=== PATIENT | male | born 1930 | race Caucasian/White ===

== ENCOUNTER 2017-08-22 14:22 | Inpatient (IN) | payer MEDICARE ==
--- NOTE | 2017-08-22 14:56 | CT ---
CT BRAIN WITHOUT CONTRAST: Date: 08/22/17 HISTORY: Fall. Bleeding. COMPARISON: CT brain from 09/20/14. FINDINGS: New from the comparison examination is high density material along the anterior left falx extending n ear to the vertex. This reaches up to 5.0 mm in transverse dimension and extends along the falx for a n AP length of approximately 3.5 cm. There is no midline shift or mass effect. This does not appear t o be hyperacute and may be subacute. Moderate microvascular ischemic changes right benitez radiata. There is also old lacunar infarct left external capsule. The basilar cisterns are patent. There is a similar lytic focus to the left occipit al calvarium with a sharp peripherally sclerotic margin that is likely chronic in nature. Old right-s ided nasal bone fractures. Mild mucosal sinus thickening of the ethmoids. There is some mild scalp swelling over the occiput. The retroorbital fat is without hemorrhage. Globe s are intact. IMPRESSION: Small subdural hematoma along the anterior left falx measuring 5.0 mm transverse and 3.5 cm AP dimens ion. Although the patient has had recent trauma, this may be subacute in nature. The calvarium is int act. No intraparenchymal hemorrhage or subarachnoid hemorrhage. CODE: ROSITA Gonzalez POS: [facility]
--- NOTE | 2017-08-22 14:57 | CT ---
CERVICAL SPINE CT SCAN WITHOUT IV CONTRAST: HISTORY: An 87-year-old male with a history of fall and head laceration, fell and hit head. FINDINGS: No evidence for acute fracture or facet dislocation. There are some generalized bilateral carotid ar miki vascular calcifications worse on the left side. There are some multilevel variable severity can al, lateral recess, and foraminal stenosis. The stenotic changes include a focal central protrusion at C5-C6 with some mild central cord indention. There is also a right paracentral disk protrusion at C6-C7. IMPRESSION: No evidence for acute fracture or facet dislocation. Multilevel variable severity canal, lateral rec ess, and foraminal stenosis including C3-C4 through C6-C7 levels. POS: [facility]
--- NOTE | 2017-08-22 15:14 | RAD ---
PORTABLE SUPINE CHEST 1 VIEW: HISTORY: An 87-year-old male with a history of fall and head injury from trauma. FINDINGS: Right ICD. Postop midline sternotomy. Borderline-sized heart. Right hemidiaphragm elevation. No c onfluent pneumonia, overt edema, or pleural effusion. No pneumothorax. IMPRESSION: No significant acute process in the chest. Stable right hemidiaphragm elevation. Atherosclerosis of the aorta with ectasia. POS: [facility]
[2017-08-22 15:27] LABS: #Eosinphils 0.2 thou/uL (0.0-0.7); #Lymphocytes 1.3 thou/uL (1.20-3.40); #Monocytes 0.6 thou/uL (0.11-0.59); #Neutrophils 3.5 thou/uL (1.40-6.50); %Basophils 0.2 % (0.0-1.0); %Eosinophils 3.6 % (0.0-10.0); %Lymphocytes 23.6 % (21.0-51.0); %Monocytes 11.3 % (0.0-10.0); %Neutrophils 61.4 % (42.0-75.0); Hemoglobin 13.1 g/dL (14.0-18.0); Mean Corpuscular HGB CONC 34.1 g/dL (32.0-36.0); Mean Corpuscular Hemoglobin 33.6 pg (27.0-31.0); Mean Corpuscular Volume 98.8 fl (80.0-94.0); Mean Platelet Volume 9.3 fL (7.4-10.4); Platelet Count 136 thou/uL (130-400); RBC Distribution Width 12.9 % (11.5-14.5); Red Blood Cell (RBC) Count 3.88 mill/uL (4.70-6.10); White Blood Cell (WBC) Count 5.7 thou/uL (4.8-10.8)
[2017-08-22 15:55] LABS: ALT (SGPT) 10 U/L (8-55); AST (SGOT) 15 U/L (5-34); Albumin 3.9 g/dL (3.4-4.8); Alkaline Phosphatase 38 U/L (40-150); Anion Gap 14 mmol/L (10-20); BUN (Urea Nitrogen) 29 mg/dL (8.4-25.7); Bilirubin, Total 1.2 mg/dL (0.2-1.2); CK (CPK) 126 U/L (30-200); Calc. Creatinine Clearance 0 mL/min (70-130); Calcium 9.1 mg/dL (7.8-10.44); Carbon Dioxide 25 mmol/L (23-31); Chloride 101 mmol/L (98-107); Estimated GFR-MDRD 29; Globulin 2.4 g/dL (2.4-3.5); Glucose 105 mg/dL (83-110); Potassium 3.8 mmol/L (3.5-5.1); Protein, Total 6.3 g/dL (5.8-8.1); Sodium 136 mmol/L (136-145)
[2017-08-22 16:00] LABS: CKMB 2.2 ng/mL (0-6.6); Troponin I 0.039 ng/mL (< 0.028)
[2017-08-22 16:07] LABS: INR-International Normal Ratio 1.2; PTT 29.7 SEC (22.9-36.1); Prothrombin Time 15.1 SEC (12.0-14.7)
[2017-08-22] MEDS ORDERED: Lidocaine 1% (PF) 30 ML VIAL ONE (17:56)
--- NOTE | 2017-08-22 18:08 | RAD ---
TWO VIEWS LEFT HIP 08/22/17 HISTORY: Fall. Trauma. Pain. COMPARISON: None. FINDINGS: Contour of the femoral head is maintained. No fracture. Joint space is preserved. IMPRESSION: No fracture. POS: [facility]
--- NOTE | 2017-08-22 18:46 | CON ---
DATE OF CONSULTATION: 08/22/2017 ATTENDING PHYSICIAN: Fidel Crow MD HISTORY OF PRESENT ILLNESS: The patient is an 87-year-old male with a past medical history of coronary artery disease, atrial fibrillation, hypertension, congestive heart failure who was visiting his this evening at [facility], when he was walking through the halls and had a sudden syncopal episode. The patient reports that prior to that began, he had been feeling lightheaded and dizzy; however, that is the lasting thing he does remember. He does not remember falling or hitting his head. The patient had positive head injury with LOC. A CT head was done, which revealed a subdural hematoma along the falx. There was no midline shift or mass effect. The hematoma is hypointense in nature suggestive of subacute process. He denies any chest pain or other associated symptoms. I have seen the patient at the bedside. He has a GCS of 15. He is alert and oriented x4. He is complaining of a mild headache. He has a positive hematoma over the posterior aspect of a small laceration in this region as well. He has normal cranial nerve exam. No focal weakness is appreciated. PAST MEDICAL HISTORY: Coronary artery disease with complete LAD lesion, atrial fibrillation, hypertension, congestive heart failure, renal insufficiency. PAST SURGICAL HISTORY: CABG, stent, pacemaker defibrillator, dental surgery. FAMILY HISTORY: Noncontributory. SOCIAL HISTORY: The patient does not smoke, drink, or use any drugs. ALLERGIES: RIVAROXABAN. REVIEW OF SYSTEMS: Per HPI. PHYSICAL EXAMINATION: GENERAL: The patient is sitting comfortably in the bed in no acute distress. HEAD: He has a hematoma along the posterior aspect of the scalp with a small laceration in this region as well. No active bleeding. EYES: PERRLA. Extraocular movements intact. ENT: Oral mucosa are pink, intact, and moist. No evidence of injury. He has a normal voice. NECK: Nontender to palpation. Free active range of motion. No meningismus or nuchal rigidity. CARDIAC: Regular rate and rhythm. LUNGS: The patient is breathing comfortably. No evidence of dyspnea. MUSCULOSKELETAL: He has good muscle tone to bilateral upper and lower extremities. No reflex asymmetry. No focal motor weakness. NEUROLOGIC: The patient has GCS of 15. He has no focal weakness or neurologic deficits appreciated on my exam. ASSESSMENT: Syncope with fall; positive head injury; subdural hematoma, subacute. PLAN: The patient appears to have subdural hematoma located along the falx. There is no midline shift or mass effect. The area is hypodense in appearance suggesting a subacute process. Talking with the patient, he does report frequent falling over the past few months as well as frequent episodes of lightheadedness and dizziness. His INR is 1.2. He does report he takes Coumadin at home on a regular basis. Will stop this medication. He will be admitted to the Hospitalist Service for further evaluation of the syncopal episodes. We will follow along closely regarding his subdural hematoma and plan to repeat his head CT in the morning. At this time, we feel he is appropriate to be admitted to the stroke unit with routine neuro checks. Please reach out to the neurosurgical service for additional questions or concerns. KEZIA
[2017-08-22] MEDS ORDERED: Acetaminophen 325 MG TAB PO PRN (19:53)
[2017-08-22] MEDS ORDERED: Ondansetron HCl/PF 4 MG/2 ML Vial IVP PRN (19:53)
[2017-08-22] MEDS ORDERED: Ondansetron ODT 4 MG TAB SL PRN (19:53)
[2017-08-22] MEDS ORDERED: Nitroglycerin 0.4 MG TAB (25 Tab Bottle) SL PRN (21:26)
[2017-08-22 21:49] VITALS: BMI 25.7
[2017-08-23 05:52] LABS: Anion Gap 10 mmol/L (10-20); BUN (Urea Nitrogen) 30 mg/dL (8.4-25.7); Calc. Creatinine Clearance 34 mL/min (70-130); Calcium 8.8 mg/dL (7.8-10.44); Carbon Dioxide 27 mmol/L (23-31); Chloride 104 mmol/L (98-107); Estimated GFR-MDRD 34; Glucose 93 mg/dL (83-110); Potassium 3.8 mmol/L (3.5-5.1); Sodium 137 mmol/L (136-145)
--- NOTE | 2017-08-23 07:46 | HP ---
DATE OF ADMISSION: 08/22/2017 CHIEF COMPLAINT: Syncopal episode. HISTORY OF PRESENT ILLNESS: The patient was visiting his spouse in the hospital who was admitted for pneumonia. He was leaving the hospital to go home or find food, fell on the hallway with probable syncopal episode, laceration to occiput of head was reported. The patient was transferred to the emergency department. While he was in the hospital for evaluation, he was found to have subdural hematoma and that was small. Neurosurgery advised conservative care given signs. Speaking with family members at bedside and patient, he had stopped his Plavix some time ago for bleeding of the gums. He is no longer on any anticoagulation. He is only on daily aspirin. He has AICD in place with defibrillator for systolic heart failure. He is compliant with his Lasix and Zaroxolyn and has baseline reduced kidney function. He denies any fevers, chills, cough, congestion or dysuria. Does report symptoms of BPH for which he takes finasteride for, but no dysuria currently. PAST MEDICAL AND SURGICAL HISTORY: Includes systolic CHF, chronic renal insufficiency, paroxysmal atrial fibrillation, hypertension, 4-vessel CABG, prior stenting, cardioversion in 2013, AICD placement, repositioning fibrillatory to right-side of chest wall, prior history of anxiety. No alcohol or drug use. Lives with spouse alone, ambulatory otherwise unassisted. Has oxygen p.r.n. ALLERGIES: No known drug allergies other than XARELTO. FORMAL REVIEW OF SYSTEMS: No fevers or chills. No changes in vision or change in speech. Positive syncopal episode. Positive laceration to head. Positive headache. No chest pain. No shortness of breath while on oxygen. Dyspnea on exertion. No palpitations. No discharge defibrillator, abdomen pain, no diarrhea, no constipation, no changes in speech or vision. PHYSICAL EXAMINATION: VITAL SIGNS: On arrival to the floor, temperature of 97.6, pulse of 70, respiratory rate of 20, oxygen saturation 94% on 2 liters nasal cannula, blood pressure of 119/70. IMAGING DATA: Review of imaging head CT with 5 mm x 3.5 cm subdermal hematoma. Cervical spine without acute osseous changes. Chest x-ray with slight elevated right hemidiaphragm. Atherosclerosis of the aorta present. Hip x-ray bilaterally no acute fractures. LABORATORY DATA: White blood cell count of 5.7, hemoglobin of 15.1, platelet count of 136, neutrophils of 61%. INR 1.2, troponin x1 is 0.032, BNP of 2028. Creatinine of 2.2. Sodium 136, potassium of 3.8, chloride 101, CO2 of 25, BUN 29, glucose 109, calcium 9.1, AST of 15, ALT of 10. Albumin of 2.9. PHYSICAL EXAMINATION: GENERAL: The patient is alert and oriented, no acute distress. HEENT: Head is normocephalic punctate laceration to occiput of head. Extraocular movements are intact. Pupils are reactive equal and accommodate to light. Oral mucosa is moist. Nasal cannula is in place. NECK: Supple. HEART: Regular rate and rhythm, no murmurs are auscultated. AICD in place to right anterior chest wall. Bilateral pulmonary congestion consistent with congestive heart failure exacerbation bilaterally in lower lung mayen. ABDOMEN: Soft, nontender, positive bowel sounds throughout. EXTREMITIES: Lower extremities with 1+ pitting edema. No cyanosis present. The patient is alert and oriented x2-3. Speech is normal. Moving all extremities. ASSESSMENT AND PLAN: Syncopal episode with closed head injury with subdural hematoma, congestive heart failure exacerbation, acute on chronic respiratory failure, chronic kidney disease, currently consistent with chronic kidney disease stage 4. Repeat CT ordered. We will follow up on that as well as Neurosurgery's recommendations. Continue to hold any anticoagulation or aspirin for patient. We will increase patient's Lasix to 80 mg. Continue Zaroxolyn daily weights. We will adjust IV as needed for Lasix. Monitor urine output and creatinine profile. Continue p.r.n. oxygen to maintain saturations, now the patient normally takes on p.r.n. basis at home and with long distance travel. Continuing patient's amiodarone, p.r.n. nitroglycerin. Follow up repeat troponin and we will consult Cardiology as needed. Possible consideration for echocardiogram and carotid Dopplers, once cleared from extension of bleeding. We will consult case management and physical therapy for disposition. [facility]
[2017-08-23] MEDS: Amiodarone 200 MG TAB PO SCH (08:41)
[2017-08-23] MEDS: Furosemide 80 MG TAB PO SCH ×2 (08:41→14:13)
[2017-08-23] MEDS: Finasteride 5 MG TAB PO SCH (08:41)
[2017-08-23] MEDS: Metolazone 5 MG TAB PO SCH (08:41)
--- NOTE | 2017-08-23 08:49 | CT ---
PRELIMINARY REPORT/[facility]/EMERGENCY AFTER HOURS PROCEDURE: EXAM: CT Head Without Intravenous Contrast CLINICAL HISTORY: 87 years old, male; Condition or disease; Other: Sdh; Patient HX: F/u sdh TECHNIQUE: Axial computed tomography images of the head/brain without intravenous contrast. COMPARISON: CT Brain WO Con 2017-08-22 14:33 FINDINGS: Prior exam showed acute parafalcine subdural hematoma in the left frontal area. The subdural blood is still present, similar in size to the prior exam. It measures about 5 mm in max imum thickness, similar to prior exam. Blood is slightly higher in attenuation than on the prior exam, so difficult to exclude some interval hemorrhage in this same region. No other definite new hemorrhage in the interval. No significant mass effect or midline shift. Ventricle size is unchanged. No definite acute infarct by CT. There is mild, relatively symmetrical decreased attenuation in the periventricular white matter, like ly from microvascular disease. There are small old lacunar infarcts in the right supraventricular white matter. No definite acute skull fracture. Included paranasal sinuses are essentially clear. IMPRESSION: Parafalcine subdural hematoma in the left frontal area, similar in size to the prior exam. Attenuatio n is slightly greater, so some interval new hemorrhage in this region is possible. However, the size is essentially unchanged. Continued followup recommended, as clinically appropriate. No significant mass effect or midline shift. Other findings discussed above. Thank you for allowing us to participate in the care of your patient. Dictated and Authenticated by: Rosalio Costa MD 08/23/2017 5:56 AM Central Time ([place] & [place]) FINAL REPORT CT BRAIN WITHOUT CONTRAST: Date: 08/23/17 HISTORY: Subdural hematoma. COMPARISON: CT brain from prior day. FINDINGS/IMPRESSION: Findings and impression are concordant with the preliminary report by Gordon. The density of the left s ubdural hematoma on the falx anteriorly has increased density. This may represent clotting of the hem orrhage, the acute phase. The prior hemorrhage may have been hyperacute given its low density. POS: [facility]
[2017-08-23 09:00] LABS: Troponin I 0.041 ng/mL (< 0.028)
--- NOTE | 2017-08-23 14:15 | ULT ---
ULTRASOUND CAROTID DOPPLER: Date: 08/23/17 HISTORY: Presyncope. COMPARISON: Carotid Doppler examination from 2011. FINDINGS: There is absent flow within the right vertebral artery. There are no elevated peak systolic velocitie s within the internal carotid arteries. Mild to moderate atherosclerotic plaque of the proximal internal carotid arteries. IMPRESSION: 1. Chronic occlusion right vertebral artery. 2. Patent left vertebral artery. 3. No hemodynamically significant stenosis within the internal carotid arteries. POS: [facility]
--- NOTE | 2017-08-23 15:06 | PRG ---
DATE OF SERVICE: 08/23/2017 HISTORY OF PRESENT ILLNESS: The patient has been without acute complaints other than headache. No n eurologic deficits reported on neuro checks from nursing review, patient has been up to see if his sp ouse who is also admitted in the hospital in the wheelchair and on 2 liters nasal cannula with no iss ues, has had carotid Dopplers performed and CT scan without issue. Reported stable subdermal hematom a from Neurosurgery standpoint. PHYSICAL EXAMINATION: VITAL SIGNS: Temperature 99.4, pulse of 69, respiratory rate of 16, oxygen saturation of 96% on 2 li ters nasal cannula, and blood pressure of 107/51. GENERAL: The patient is alert and oriented, no acute distress. HEENT: Head is normocephalic, occiput no longer bleeding. Extraocular movements are intact. Pupils are equal, round, reactive, accommodate to light. Oral mucosa is moist. NEUROLOGIC: Cranial nerves II-XII grossly intact. NECK: Supple. HEART: Regular rate and rhythm. No murmurs auscultated. LUNGS: With crackles at bilateral bases. ABDOMEN: Soft, nontender. EXTREMITIES: With 1-2+ pitting edema. NEUROLOGIC: The patient is alert and oriented x3, no focal deficits. Speech is normal. LABORATORY DATA: Second troponin at 0.041. Sodium 137, potassium of 3.5, CO2 of 27, BUN of 30, crea tinine of 1.9, glucose of 93. Repeat CT head, increasing density of subdural hematoma. No extension , likely clot formation per Radiology read. Carotid Dopplers with stable findings. Chronic occlusio n of the right vertebral artery with appropriate compensation surrounding vessels in pathways. Left vertebral artery was patent with mild to moderate plaque to the internal carotid arteries. Echo read is pending. ASSESSMENT AND PLAN: Subdermal hematoma, syncopal episode, systolic congestive heart failure exacerb ation, acute on chronic respiratory failure, paroxysmal atrial fibrillation, traumatic brain injury, laceration to head, scalp, chronic kidney disease stage 4, elevated troponin. Continuing patient's a miodarone from home. Increase patient's Lasix to 80 mg p.o. b.i.d. with continuation of Zaroxolyn. Daily weights. No aspirin or anticoagulation secondary to subdermal hematoma. Following up Neurosmerari rodríguez's recommendations. The patient currently is stable. The patient is still requiring oxygen supp ort. We will attempt to diurese patient, troponins indeterminate, stable, likely secondary to conges tive heart failure exacerbation in the setting of chronic renal insufficiency. We will continue tren d troponins. Repeat EKG this morning showed inverted T-waves in aVL, V2 and V3. Repeat EKG and trop onins scheduled for this afternoon. Echo reading will be followed up on. If no issues with echo or repeat cardiac enzymes, we will consult physical therapy for mobilization. Evaluation of patient's g ait prior to discharge. The patient is likely to require 1-2 more days of diuresis.
[2017-08-24 05:54] LABS: Anion Gap 13 mmol/L (10-20); BUN (Urea Nitrogen) 35 mg/dL (8.4-25.7); Calc. Creatinine Clearance 30 mL/min (70-130); Calcium 8.7 mg/dL (7.8-10.44); Carbon Dioxide 27 mmol/L (23-31); Chloride 98 mmol/L (98-107); Estimated GFR-MDRD 30; Glucose 87 mg/dL (83-110); Potassium 3.4 mmol/L (3.5-5.1); Sodium 135 mmol/L (136-145); Troponin I 0.044 ng/mL (< 0.028)
[2017-08-24] MEDS: Finasteride 5 MG TAB PO SCH (08:52)
[2017-08-24] MEDS: Metolazone 5 MG TAB PO SCH (08:55)
[2017-08-24] MEDS: Furosemide 80 MG TAB PO SCH ×2 (08:55→14:12)
[2017-08-24] MEDS: Amiodarone 200 MG TAB PO SCH (08:55)
[2017-08-24] MEDS ORDERED: Amiodarone 200 MG TAB PO SCH ×2 (09:37→09:45)
[2017-08-24] MEDS ORDERED: Furosemide 80 MG TAB PO SCH (10:45)
--- NOTE | 2017-08-24 11:34 | PRG ---
DATE OF SERVICE: 08/24/2017 HISTORY OF PRESENT ILLNESS: The patient states when he sits up from bed to side of the bed with eati ng, etc., he gets dizziness, lightness of head, headache much improved, although sometimes head is st ill throbbing following a traumatic injury after a fall. The patient regarding his blood pressure st ates he normally lives in the low 100s to 90s systolic. He has had a good diuresis and has no new co mplaints. Stable with breathing off oxygen this morning. OBJECTIVE: VITAL SIGNS: Include temperature 97.8; pulse is 72; respiratory rate of 16; oxygen saturation 90% on room air; blood pressure 94/58; on reweigh, admit 184 pounds 11 ounces, down to 182 pounds 9 ounces. GENERAL: The patient is alert and oriented, in no acute distress. HEENT: Head is normocephalic. Healing as expected, laceration of back of head. Extraocular movemen ts are intact. Pupils equal, round, reactive to light and accommodation. Oral mucosa is moist. NECK: Supple. HEART: Regular rate and rhythm. No murmurs auscultated. LUNGS: Clear to auscultation bilaterally. No further crackles. ABDOMEN: Soft, nontender, positive bowel sounds throughout. EXTREMITIES: Lower extremities without cyanosis or edema. NEUROLOGIC: The patient is alert and oriented x3, no focal deficits. Speech is normal. Moving all extremities equally. LABORATORY DATA: Review of a.m. labs, troponins remain stable at 0.044 this morning. Sodium 135, po tassium 3.4, CO2 of 27, creatinine of 2.13, glucose of 87. ASSESSMENT AND PLAN: 1. Congestive heart failure exacerbation, appears to be resolved following increased Lasix. We will decrease back to home dose. Re-add in potassium supplementation and recheck electrolytes in the a.m . Patient remains currently paced with automatic implantable cardioverter defibrillator placement. Echocardiogram shows stable function with dilated atria. Patient's respiratory status has much impro chrissie following diuresis. No longer requiring oxygen. No further syncopal episodes, but patient has n ot been ambulated. Consult physical therapy for evaluation. 2. Renal insufficiency has stabilized to chronic kidney disease stage 3 levels from an admit for, jace barrera represent on admission acute on chronic renal insufficiency. 3. Hypertension and dizziness. The patient's syncopal episode with fall resulting in subdural hemat roman, currently stable, checking orthostatics. This appears to be patient's baseline. We will decrea se amiodarone from 200 down to 100 mg and follow the patient's blood pressures and ambulatory status for potential discharge likely tomorrow with home health.
[2017-08-24] MEDS: Potassium Chloride 20 MEQ TAB PO SCH (17:06)
[2017-08-25] MEDS ORDERED: Acetaminophen 325 MG TAB PO PRN (02:21)
[2017-08-25] MEDS ORDERED: Ondansetron ODT 4 MG TAB SL PRN (02:23)
[2017-08-25] MEDS ORDERED: Ondansetron HCl/PF 4 MG/2 ML Vial IVP PRN (02:23)
[2017-08-25 07:43] LABS: Anion Gap 15 mmol/L (10-20); BUN (Urea Nitrogen) 43 mg/dL (8.4-25.7); Calc. Creatinine Clearance 23 mL/min (70-130); Calcium 8.9 mg/dL (7.8-10.44); Carbon Dioxide 30 mmol/L (23-31); Chloride 94 mmol/L (98-107); Estimated GFR-MDRD 24; Glucose 105 mg/dL (83-110); Magnesium 2.2 mg/dL (1.6-2.6); Potassium 3.5 mmol/L (3.5-5.1); Sodium 135 mmol/L (136-145)
[2017-08-25] MEDS ORDERED: Amiodarone 200 MG TAB PO SCH (09:00)
[2017-08-25] MEDS: Potassium Chloride 20 MEQ TAB PO SCH (09:07)
[2017-08-25] MEDS: Metolazone 5 MG TAB PO SCH (09:08)
[2017-08-25] MEDS: Furosemide 80 MG TAB PO SCH ×2 (09:08→14:17)
[2017-08-25] MEDS: Finasteride 5 MG TAB PO SCH (09:08)
[2017-08-25 11:45] VITALS: TEMP 98.3
[2017-08-25 12:02] VITALS: BP 100/64
--- NOTE | 2017-08-25 12:38 | PRG ---
DATE OF SERVICE: 08/25/2017 SUBJECTIVE: Mr. Catherine is feeling well. States he has been able to walk, get around without difficult ies or problems, still some slight dizziness. Otherwise, no other complaints. PHYSICAL EXAMINATION: VITAL SIGNS: BP 100/63, temperature 98.3, pulse 70, respirations 18, O2 sat 94. LUNGS: Clear. HEART: Reveals no murmurs. ABDOMEN: Soft, nontender, bowel sounds are active. NEUROLOGIC: He is alert. He is able to move all extremities well. IMPRESSION: 1. Syncopal episode. 2. Small subdural hematoma, seems to be acutely healing without need for intervention. PLAN: Patient may be discharged home today.
--- NOTE | 2017-08-25 14:24 | DIS ---
DATE OF ADMISSION: 08/23/2017 DATE OF DISCHARGE: 08/25/2017 DISCHARGE DIAGNOSES: 1. Syncopal episodes. 2. Subdural hematoma relatively new but nonoperative. 3. Congestive heart failure. 4. Cardiomyopathy. ADMITTING PHYSICIAN: Dr. Otto Jules CONSULTING PHYSICIAN: None. HOSPITAL Summary: An 87-year-old male with severe cardiomyopathy who was admitted due to a fall, syn copal episodes. He was found to have a small subdural hematoma. He continued to have some residual, he was admitted to the hospital and underwent further studies, carotid Doppler ultrasound and [facility] brain CT showed no advancement of the subdural hematoma. By 08/25/2017, he was able to walk withou t assistance and tolerated all oral intake and he was discharged home.
--- NOTE | 2017-08-30 13:44 | EKG ---
Test Reason : Blood Pressure : / mmHG Vent. Rate : 072 BPM Atrial Rate : 072 BPM P-R Int : 000 ms QRS Dur : 176 ms QT Int : 506 ms P-R-T Axes : 000 -02 144 degrees QTc Int : 554 ms AV sequential or dual chamber electronic pacemaker Confirmed by ELLIE EASTON ([id number]), primer expeditor and drier WILLIAM LANCASTER ([id number]) on 08/30/2017 1:43:31 PM Referred By: Confirmed By:ELLIE EASTON
== END 2017-08-25 14:50 | disposition home health service (06) | DRG 82 ==
LOC: ERS 14:22 → 2SE 19:44 → OBSVTOIN 08-23 14:37
PROVIDERS: ADMIT Family Medicine; ATTEND Family Medicine
PROC: 0HQ0XZZ Repair Scalp Skin, External Approach (ICD-10-PCS; principal; 2017-08-23)
DX: S06.5X9A Traumatic subdural hemorrhage with loss of consciousness of unspecified duration, initial encounter (principal); I50.23 Acute on chronic systolic (congestive) heart failure; J96.20 Acute and chronic respiratory failure, unspecified whether with hypoxia or hypercapnia; S01.01XA Laceration without foreign body of scalp, initial encounter; I13.0 Hypertensive heart and chronic kidney disease with heart failure and stage 1 through stage 4 chronic kidney disease, or unspecified chronic kidney disease; I42.9 Cardiomyopathy, unspecified; Z95.1 Presence of aortocoronary bypass graft; N18.3 Chronic kidney disease, stage 3 (moderate); N40.0 Benign prostatic hyperplasia without lower urinary tract symptoms; W19.XXXA Unspecified fall, initial encounter; Z95.810 Presence of automatic (implantable) cardiac defibrillator; I48.0 Paroxysmal atrial fibrillation; I25.10 Atherosclerotic heart disease of native coronary artery without angina pectoris; E78.5 Hyperlipidemia, unspecified
CPT/HCPCS: 12002; 36415; 70450; 71045; 72125; 80048; 80053; 82553; 83735; 83880; 84484; 85025; 85610; 85730; 93005; 93010; 93306; 93880; A4216; G8978-GP-CI; G8979-GP-CH; J2001

== ENCOUNTER 2017-11-30 08:29 | Emergency (ER) | payer MEDICARE ==
[2017-11-30 09:26] LABS: #Eosinphils 0.2 thou/uL (0.0-0.7); #Lymphocytes 0.9 thou/uL (1.20-3.40); #Monocytes 0.4 thou/uL (0.11-0.59); #Neutrophils 2.9 thou/uL (1.40-6.50); %Basophils 1.1 % (0.0-1.0); %Eosinophils 4.2 % (0.0-10.0); %Lymphocytes 21.2 % (21.0-51.0); %Neutrophils 65.6 % (42.0-75.0); Mean Corpuscular HGB CONC 34.9 g/dL (32.0-36.0); Mean Corpuscular Hemoglobin 33.4 pg (27.0-31.0); Mean Corpuscular Volume 95.6 fl (80.0-94.0); Mean Platelet Volume 8.1 fL (7.4-10.4); Platelet Count 169 thou/uL (130-400); RBC Distribution Width 12.6 % (11.5-14.5); White Blood Cell (WBC) Count 4.4 thou/uL (4.8-10.8)
[2017-11-30 09:44] LABS: ALT (SGPT) 10 U/L (8-55); AST (SGOT) 23 U/L (5-34); Albumin 3.7 g/dL (3.4-4.8); Alkaline Phosphatase 47 U/L (40-150); Anion Gap 15 mmol/L (10-20); BUN (Urea Nitrogen) 48 mg/dL (8.4-25.7); Bilirubin, Total 0.6 mg/dL (0.2-1.2); CK (CPK) 116 U/L (30-200); Calc. Creatinine Clearance 0 mL/min (70-130); Calcium 8.5 mg/dL (7.8-10.44); Carbon Dioxide 26 mmol/L (23-31); Chloride 98 mmol/L (98-107); Estimated GFR-MDRD 19; Globulin 2.6 g/dL (2.4-3.5); Glucose 77 mg/dL (83-110); Lipase 19 U/L (8-78); Potassium 3.3 mmol/L (3.5-5.1); Protein, Total 6.3 g/dL (5.8-8.1); Sodium 136 mmol/L (136-145)
[2017-11-30 09:50] LABS: CKMB 3.2 ng/mL (0-6.6); Troponin I 0.064 ng/mL (< 0.028)
--- NOTE | 2017-11-30 10:32 | RAD ---
CHEST 1 VIEW: Date: 11/30/17 HISTORY: Chest pain. COMPARISON: 08/22/17. FINDINGS: Cardiac silhouette magnified and enlarged. Pulmonary vasculature upper limits of normal. Mediastinum midline with aortic calcification, postoperative changes, and multilead right subclavian cardiac elec tronic device. Old left rib fractures. No lobar consolidation or evidence of pneumothorax. IMPRESSION: 1. Cardiomegaly. 2. Borderline pulmonary vascular congestion. 3. Chronic-type findings are stable. POS: [facility]
[2017-11-30 12:55] LABS: Troponin I 0.087 ng/mL (< 0.028)
== END 2017-11-30 13:36 | disposition home or self-care (01) ==
LOC: ERS 08:29
DX: R07.9 Chest pain, unspecified (principal); R19.7 Diarrhea, unspecified; F41.9 Anxiety disorder, unspecified; I11.0 Hypertensive heart disease with heart failure; I50.9 Heart failure, unspecified; I48.91 Unspecified atrial fibrillation; I25.10 Atherosclerotic heart disease of native coronary artery without angina pectoris; N28.9 Disorder of kidney and ureter, unspecified; Z79.82 Long term (current) use of aspirin; Z79.899 Other long term (current) drug therapy
CPT/HCPCS: 36415; 71045; 80053; 82550; 82553; 83690; 83880; 84484; 85025; 93005

== ENCOUNTER 2018-01-01 11:58 | Inpatient (IN) | payer MEDICARE ==
[2018-01-01 12:27] LABS: #Eosinphils 0.2 thou/uL (0.0-0.7); #Lymphocytes 0.7 thou/uL (1.20-3.40); #Monocytes 0.5 thou/uL (0.11-0.59); %Basophils 0.1 % (0.0-1.0); %Eosinophils 3.7 % (0.0-10.0); %Lymphocytes 12.9 % (21.0-51.0); %Monocytes 9.5 % (0.0-10.0); %Neutrophils 73.8 % (42.0-75.0); Hemoglobin 12.6 g/dL (14.0-18.0); Mean Corpuscular HGB CONC 32.5 g/dL (32.0-36.0); Mean Corpuscular Hemoglobin 31.7 pg (27.0-31.0); Mean Corpuscular Volume 97.6 fl (80.0-94.0); Mean Platelet Volume 9.9 fL (7.4-10.4); Platelet Count 128 thou/uL (130-400); RBC Distribution Width 13.5 % (11.5-14.5); Red Blood Cell (RBC) Count 3.98 mill/uL (4.70-6.10); White Blood Cell (WBC) Count 5.4 thou/uL (4.8-10.8)
--- NOTE | 2018-01-01 12:34 | RAD ---
CHEST 1 VIEW: HISTORY: Dyspnea. COMPARISON: Chest radiograph 11/30/17. FINDINGS: Heart size is enlarged. AICD/pacer is present. Small effusions. Mild edema. Dense calcifications transverse aorta. IMPRESSION: Cardiomegaly, effusions, and mild edema. POS: [facility]
[2018-01-01 12:44] LABS: ALT (SGPT) Less than 7 U/L (8-55); AST (SGOT) 11 U/L (5-34); Alkaline Phosphatase 48 U/L (40-150); Anion Gap 16 mmol/L (10-20); BUN (Urea Nitrogen) 44 mg/dL (8.4-25.7); Bilirubin, Total 0.9 mg/dL (0.2-1.2); CK (CPK) 53 U/L (30-200); Calc. Creatinine Clearance 0 mL/min (70-130); Calcium 9.1 mg/dL (7.8-10.44); Carbon Dioxide 27 mmol/L (23-31); Chloride 99 mmol/L (98-107); Estimated GFR-MDRD 22; Globulin 2.5 g/dL (2.4-3.5); Glucose 92 mg/dL (83-110); Lipase 26 U/L (8-78); Magnesium 2.4 mg/dL (1.6-2.6); Potassium 4.4 mmol/L (3.5-5.1); Protein, Total 6.5 g/dL (5.8-8.1); Sodium 138 mmol/L (136-145)
[2018-01-01 12:49] LABS: CKMB 1.4 ng/mL (0-6.6)
[2018-01-01 13:12] LABS: Bilirubin Negative (Negative); Blood, Urine Negative (Negative); Clarity CLEAR (Clear); Glucose, Urine (Dipstick) Negative (Negative); Leukocyte Negative (Negative); Nitrite Negative (Negative); Protein, Urine (Dipstick) Negative (Neg-Trace); Specific Gravity, Urine 1.008 (1.002-1.036); pH, Urine 6.5 (5.0-9.0)
[2018-01-01] MEDS ORDERED: Amiodarone 200 MG TAB PO SCH (14:30)
[2018-01-01 17:04] VITALS: BMI 22.6
[2018-01-01 18:56] LABS: Troponin I 0.018 ng/mL (< 0.028)
[2018-01-01] MEDS ORDERED: Sodium Chloride 0.9% 1,000 ML IV SCH (22:15)
[2018-01-01] MEDS: Amiodarone 200 MG TAB PO SCH (22:23)
--- NOTE | 2018-01-02 01:39 | HP ---
DATE OF ADMISSION: 01/01/2018 CHIEF COMPLAINT: Syncope. HISTORY OF PRESENT ILLNESS: This is an 87-year-old male, patient of Dr. Otot Jules, who reported to family as well as to the ER physician that he had felt very tired earlier and pulled ove r while he was driving, and essentially fell asleep and then woke up a while later. While he was joellen e, he had another episode of passing out while at the table, almost in mid conversation. He never craig d a seizure-type activity, did not have loss of control of bowel or bladder, did not have any type of a postictal-type problem. He does not have a history of seizures. He does have a history of a pace maker placed however, and in the ER, the AICD report showed several episodes of V-tach, also by abby gilman corresponding to when the patient said he had his syncopal episodes. For that, the patient was put in the hospital for more thorough investigation and treatment. 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 He has stage IV chronic kidney disease and also status post, based on the office chart, of a remote CVA. Also, he had a non-STEMI in 02/2017. Had a fall in July of this year, causing a kahn bdural hematoma. His design assembler is Dr. López. PAST SURGICAL HISTORY: Positive for AICD. He had a right carotid endarterectomy. He had a CABG x4 in 1997 and over the years, he has had multiple catheterizations done and several stents placed. ALLERGIES: RIVAROXABAN, which the patient states was not really a true allergy, but was more of an i rritation or nontolerance due to it making him feel bad. CURRENT MEDICATIONS: He is on amiodarone 200 mg twice a day, Lasix 20 mg once a day, K-Dur 20 mEq da florencia. He was on mg and only twice a week. He was also on calcitriol 0.25 mcg daily, and also o n finasteride for BPH issues. FAMILY HISTORY: Noncontributory. 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 Lives with his daughter an d his . Has no toxic habits. Has never smoked or drank. REVIEW OF SYSTEMS: Denies any headache or visual changes. No troubles with chewing or swallowing. No chest pain. Mild shortness of breath, which he has noted for the last several weeks, but no cough , no hemoptysis. Denies any nausea or vomiting. No changes in bowel or bladder habits. Denies any dysuria or hematuria. Denies any melena or hematochezia. Denies any paresis or paresthesias. No tr oubles with auditory or visual hallucinations. No suicidal or homicidal ideations. PHYSICAL EXAMINATION: GENERAL: He is lying down in hospital bed in no acute distress, comfortable. VITAL SIGNS: Temperature 98.2 with a pulse of 82, respirations 18, BP is 116/63, saturating greater than 95% on room air. HEENT: Normocephalic, atraumatic cranium with pupils that are equal, round, and reactive to light an d accommodation. Extraocular movements are intact. Mucous membranes are moist. NECK: Supple with positive JVD. No lymphadenopathy is noted. LUNGS: Some mild basilar rales. HEART: S1, S2 with no rubs or murmurs, but a questionable S3 with a lateralized PMI into the anterio r axillary line. ABDOMEN: Soft, flat, nontender, nondistended. No hepatosplenomegaly. Bowel sounds are hypoactive a t this time. GENITOURINARY: Deferred. EXTREMITIES: Good palpable pulses x4. No true edema is noted. No cyanosis, no clubbing. NEUROLOGIC: He is alert and oriented x4. Cranial nerves II-XII are equal and symmetrical. He has n o motor or sensory deficits. LABORATORY AND X-RAY FINDINGS: His white count is normal at 5.4, H&H are normal at 12.6 and 38.1 res pectively with 128,000 platelets. Sodium is 138, potassium is 4.4, chloride is 99, bicarbonate is 27 , BUN is 44, creatinine is 2.8 with a GFR estimated at 22, glucose of 92. His beta natriuretic pepti de is elevated at 3500. CK is at 53, CK-MB is at 1.4, and a troponin done twice is unchanged at 0.02 . ASSESSMENT: Ventricular tachycardia episodes with associated syncope, also with congestive heart flynn lure exacerbation with known chronic stage 4 kidney disease. The patient will be admitted, given diu resis, and Cardiology is already here to help assess him.
--- NOTE | 2018-01-02 02:20 | CON ---
DATE OF ADMISSION: 01/01/2018 DATE OF CONSULTATION: 01/01/2018 INDICATION FOR CONSULTATION: An 87-year-old patient with a history of cardiomyopathy status post AIC D implant with presyncopal and syncopal episodes which was found to have episodes of sustained ventri cular tachycardia which were pace terminated by the device. At the time of the continued ventricular tachycardia, the patient did have the presyncopal and syncopal episodes. According to the records, there were good correlations; unfortunately, those records are not yet available. They are probably still in the emergency room and we will need to find those exact tracings to see exactly what the [facility] ient has been doing, but according to the records from the emergency room that there was correlation between the ventricular tachycardia events which were pace terminated and his symptomatic episodes of presyncope and syncopal episodes. At this time, he is feeling fine. He denied any chest pain. He says he has been fatigued recently. He has some shortness of breath also associated with the episode s, but again denied any chest pain. PAST MEDICAL HISTORY: Significant for coronary artery disease, bypass surgery, cardiomyopathy, AICD implant. He is not a candidate for further bypass surgery apparently. He does have a history of car otid artery stenosis. He has had the AICD implant. He has had a right carotid endarterectomy. He h as a history of atrial fibrillation which is apparently paroxysmal. MEDICATIONS: Include aspirin 81 mg a day, finasteride 5 mg a day, Colace 100 mg a day, calcitriol 0. 25 mcg q. day, potassium chloride one tablet q. day, nitroglycerin as needed. Pacerone 200 mg a day, he has been taking it once a day at home. Furosemide he takes 60 mg b.i.d. SOCIAL HISTORY: He is . He has family who are alive and well. He no longer smokes or has an y history of significant tobacco abuse. REVIEW OF SYSTEMS: He mainly complained of some dizziness and fatigue recently. He had no chest kerry n. He did have some palpitations. He had no GI or complaints recently, no pulmonary complaints, but does have some shortness of breath if he over dose it. PHYSICAL EXAMINATION: GENERAL: Reveals an elderly gentleman who is in no acute distress. He is alert at this time, he is oriented. VITAL SIGNS: Blood pressure is 116/63, temperature is 98.2, respiratory rate is 18, heart rate is 82 , O2 saturation 98%. HEENT: Reveals the head to be normocephalic and atraumatic. He has well healed surgical incision ov er the right carotid area, status post carotid endarterectomy. CHEST: At this time, his chest is actually relatively clear. I do not hear any specific rales, rhon chi, or wheezing. Certainly less than what I would have expected with someone with an elevated BNP t hat he has and congestive heart failure symptoms. CARDIOVASCULAR: Heart sounds are somewhat distant. There is very soft systolic murmur at the apex. ABDOMEN: Soft and nontender with positive bowel sounds. There is no organomegaly or masses noted. Femoral pulses are present. EXTREMITIES: Show no clubbing or cyanosis. There is no lower extremity edema. Pedal pulses are dif ficult to palpate. NEUROLOGIC: He appears to be relatively fully intact at this time. He has seen for his age, have no rmal strength and tone. His mentation is within normal limits. SKIN: Warm and dry. LABORATORY DATA: Pertinent findings, WBC is 5.4, hemoglobin 12.6, potassium is 4.4, creatinine is 2. 8 with a BUN of 44. His BNP was 3490, troponin I is negative as well as the MB. IMPRESSION: 1. Sustained ventricular tachycardia which was pace terminated with associated presyncopal and synco pal episodes. Due to his cardiomyopathy, we will increase his amiodarone back up to 200 mg twice a d ay. He has been at home taking only 200 mg a day. We will continue his other medications. 2. History of coronary artery disease which is felt not to be inoperable. He has status post stent placement, I believe the last one was in 2008, perhaps his last echocardiogram was in July of this year, which showed an ejection fraction of 20%-25% with significantly or severe dilated left atrium with moderate right atrial enlargement and severe mitral valve regurgitation with mild aortic and tri cuspid valve regurgitation. His last cardiac catheterization was in 2011, which showed 100% occlusio n of the left anterior descending artery, which filled faintly via collaterals in the right coronary and the left circumflex. His anterior wall was akinetic. He had a 50% stenosis in the graft distall y. He had undergone bypass surgery in 1996. 3. Peripheral vascular disease. I cannot palpate pedal pulses. He has undergone carotid endarterec donya, but this appears to be stable at this time. We will be more than happy to continue to follow t he patient with you. We will continue with IV diuretics to see if we can diurese the patient, but ho pefully this will not be at the expense of worsening of the renal insufficiency. Thank you very much. We will continue to follow the patient with you. Dr. López will resume his ca re tomorrow.
[2018-01-02 05:26] LABS: Anion Gap 13 mmol/L (10-20); BUN (Urea Nitrogen) 40 mg/dL (8.4-25.7); Calc. Creatinine Clearance 23 mL/min (70-130); Calcium 8.5 mg/dL (7.8-10.44); Carbon Dioxide 26 mmol/L (23-31); Chloride 98 mmol/L (98-107); Estimated GFR-MDRD 25; Glucose 79 mg/dL (83-110); Potassium 3.7 mmol/L (3.5-5.1); Sodium 133 mmol/L (136-145)
[2018-01-02] MEDS ORDERED: Furosemide 40 MG/4 ML VIAL SLOW IVP SCH ×2 (06:00→14:00)
--- NOTE | 2018-01-02 07:59 | CON ---
DATE OF CONSULTATION: 01/02/[address] Rosado' nurse practitioner. CARDIOLOGY CONSULT ROOM #: 296. PRIMARY CARE PHYSICIAN: Dr. Otto Jules. PRIMARY FOOD ASSEMBLER KITCHEN: Dr. Magdalene López. REFERRING DOCTOR: Dr. Mcdaniel. REASON FOR CARDIOLOGY CONSULTATION: Syncope and episode of ventricular tachycardia. HISTORY OF PRESENT ILLNESS: Mr. Catherine is an 87-year-old male with a significant history of chronic systolic heart failure, chronic atrial fibrillation, chronic kidney disease, coronary artery disease with status post stent and CABG. Patient was in the hospital in 07/2017 for a fall and a syn copal episode. According to our medical record, there are no indications that patient has AICD inter rogation at that time. Patient presents today, patient felt like the patient's heart is jumping out 3-4 times today with feeling like a blacking out. The patient's family member called the EMS, then agustin connelly was brought to the emergency department for further evaluation and treatment. At the ER, mansi harvey's AICD was interrogated and patient was told the patient has 3-4 episodes of V-tach. During thos e episodes, patient had experienced of left arm pain and chest tightness. Patient has a multiple his tory of fall and recent one was about 2-3 months ago due to the blackout. During the initial Cardiol ogy consults, assessment, patient denies shortness of breath, dizziness, lightheadedness, chest pain or discomfort in his chest, pain or discomfort to the left upper extremities or any other cardiac com plaints. Patient had a history of coronary artery bypass graft in 1996 and also stent placement in 2008. Mansi gabriel had a pacemaker placement in 2005; However, the patient's pacemaker was changed to an AICD and al so upgrade to a biventricular ICD in 2015. Patient's recent echocardiogram was done in 07/2017 which EF shows 20% to 25%, [id number] dilated left atrium, moderate right artery enlargement, lalen re mitral valve regurgitation, and mild arterial valve regurgitation, and mild tricuspid regurgitatio n. 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 Patient has m ultiple cardiac catheterizations. The latest one was in 2011, which shows 100% in the LAD, which fee ling fever, right coronary arteries, and circumflex. Patient's anterior wall was akinetic and 40%-50 % in grafting distally in the LAD. Patient has a history of colonic atrial fibrillation and the mansi ent underwent cardioversion in 12/2012. At this moment, the patient is on aspirin 81 mg once a day, which the patient cannot be on any oral anticoagulation medication due to the history of multiple fal ls. Patient is to follow up with [facility]. Last visit was few days ago due t o fluid overload. He reports that he lost 5 pounds after patient received Lasix IV and metolazone. PAST MEDICAL HISTORY: 1. Severe systolic heart failure with biventricular AICD placement. 2. Chronic atrial fibrillation, patient is on aspirin 81 mg. 3. Coronary artery disease with history of a stent in a CABG. 4. Carotid stenosis. 5. History of cerebrovascular accident. 6. Chronic kidney disease. 7. History of sick sinus syndrome with status postop pacemaker placement. 8. History of supraventricular tachycardia. 9. History of vertigo. 10. Syncopal. PAST SURGICAL HISTORY: 1. CABG in 1996. 2. Stent placement in 2008. 3. Pacemaker insertion in 2005. 4. Biventricular AICD placement in 2014. 5. Right endarterectomy. FAMILY HISTORY: Patient's father due to complication from congestive heart failure. Daquan wong's three brothers due to complication of the heart rate symptoms. SOCIAL HISTORY: Patient lives with and daughter. He never smoked, drink or use illicit drugs. Patient is retired. Patient drinks ice tea 3-4 glasses of the day. ALLERGIES: He has no known drug allergies. REVIEW OF SYSTEMS: The 10-point review of systems, negative except patient's upper and lower denture s and polyuria. He has constipation, tended to have constipation. He has a bowel movement every 2-3 days. He has a walker in his room at home, but he does not use. CURRENT HOME MEDICATIONS: The patient's home medication list: 1. Aspirin 81 mg once a day. 2. Colace 100 mg once a day. 3. Calcitriol 0.25 mg once a day. 4. Potassium 40 mEq twice a day. 5. Proscar 5 mg once a day. 6. Amiodarone 200 mg once a day. 7. Lasix 60 mg twice a day. 8. Metolazone 5 mg Friday and Friday. 9. Tylenol 650 mg every 4 hours as needed. 10. Nitroglycerin 0.4 mg sublingual every 5 minutes as needed. PHYSICAL EXAMINATION: VITAL SIGNS: Blood pressure 116/63, heart rate 82, respiratory rate 18, O2 saturations 98% room air, temperature 98.2. GENERAL: Patient is alert, oriented x4, patient is not in acute distress. HEAD: Normocephalic, atraumatic. EYES: Extraocular muscle movement intact. ENT: Nose and oral mucosa are moist without lesion. NECK: No JVD. Neck supple, normal range of motion. LUNGS: Clear to auscultation bilaterally, but diminished at the bases. No wheezing or rhonchi noted , bruit noted. CARDIOVASCULAR: Regular. There are no S3 or S4. There are murmur to left apical site. There are 2 + pulses in the dorsalis pedis, posterior tibial, popliteal, and femoral arteries. No edema noted. No bruits to the bilateral carotid arteries noted. ABDOMEN: Soft and nontender or mass to palpate, slightly distended, hyperactive bowel sounds. EXTREMITIES: Patient is able to move all extremities. SKIN: Warm, dry. No lesions or bruise noted. NEUROLOGIC: The patient is alert, oriented x4, no acute distress. ASSESSMENT AND PLAN: 1. History of ventricular tachycardia with automatic implantable cardioverter defibrillator terminat ion. There are no automatic implantable cardioverter defibrillator interrogation record in the [facility] nt's chart at this moment. The telemetry records shows patient's EKG shows V pacing A sensing. [facility] ent has a history of chronic atrial fibrillation. A 12-lead EKG at the ER shows AV paced. We like t o continue to monitor the patient's automatic implantable cardioverter defibrillator activity on the obstetrical tech at this moment. 2. Chronic systolic heart failure. Patient's echocardiogram was done in 07/2017, shows EF of 20-25% and also patient's BNP was more than 3000. The patient's primary care doctor, Dr. Harris. We will order the Lasix 40 mg IV push twice a day from [facility] for patient's condition and after the [facility]'s medications input into the computer, I like to review and we like to adjust the patient medicat ion as appropriate. 3. Chronic atrial fibrillation. The patient is on amiodarone 200 mg once a day with aspirin 81 mg o nce a day. Due to the history of multiple falls, he is not going to be on the oral anticoagulant at this moment, we would like to continue to monitor on the telemetry. 4. Hypertension. The patient is hypotensive at this moment and the patient's betablocker is on hold and TRACEY or ARB on hold due to history of chronic kidney disease. 5. Chronic kidney disease. The patient has seen a aircraft instrument tester. Patient's creatinine level at 2.8 today, which is the patient's baseline. At this moment, we would like to continue to monitor. 6. Coronary artery disease, status post stent and coronary artery bypass graft. The patient's condi tion is stable at this moment, we would like to continue to monitor. Thank you very much for allowing the Cardiology Service to participate in care of the patient. We wi ll follow along with the patient care team and make recommendation as appropriate. We will see this patient from tomorrow.
[2018-01-02] MEDS: Calcitriol 0.25 MCG CAP PO SCH (08:36)
[2018-01-02] MEDS: Amiodarone 200 MG TAB PO SCH ×3 (08:36→20:18)
[2018-01-02] MEDS: Potassium Chloride 20 MEQ TAB PO SCH (08:36)
--- NOTE | 2018-01-02 10:22 | PRG ---
DATE OF SERVICE: 01/02/2018 Mr. Catherine was admitted yesterday after a syncopal episode, brought into the emergency room. His pacem manfred defibrillator was interrogated. He was found to have a short run of ventricular tachycardia. He has now been admitted for further observation. Cardiology has seen the patient. They have recomm ended increasing his amiodarone to 10 mg twice a day. He is feeling okay otherwise, no other mass me dical complaints are noted. He has known history of chronic renal insufficiency. PHYSICAL EXAMINATION: VITAL SIGNS: BP 90/51, temperature 97.8. LUNGS: Clear. HEART: Reveals no murmur. LABORATORY: Sodium 133, potassium 3.7, chloride 98, CO2 26, BUN 40, creatinine 2.46. Troponins are otherwise normal. IMPRESSION: Syncopal episode, probably related to episode of V-tach. PLAN: We will await Cardiology recommendations. From my opinion, the patient was fairly stable righ t now. Possibly could be discharged as early as tomorrow.
[2018-01-02] MEDS ORDERED: Potassium Chloride 20 MEQ TAB PO SCH (12:00)
--- NOTE | 2018-01-02 13:04 | PRG ---
DATE OF SERVICE: 01/02/2018 SUBJECTIVE: Mr. Catherine is feeling better. No complaints. OBJECTIVE: VITAL SIGNS: Blood pressure is 90/50, which is about his baseline; pulse 70, it is paced. LUNGS: Clear anteriorly. Mild rales, right lower base, posterior. CARDIAC: Normal S1, normal S2. ASSESSMENT: 1. Advanced left ventricular dysfunction of congestive heart failure. 2. Chronic atrial fibrillation. Cannot be anticoagulated due to recurrent gastrointestinal bleeding . 3. Congestive heart failure, systolic. Cannot tolerate TRACEY inhibitors or beta blockers due to hypot ension. 4. Recurrent ventricular tachycardia. PLAN: 1. He is on amiodarone 200 mg tablets 2 three times a day today. 2. I would recommend reducing amiodarone to 200 mg twice a day tomorrow. 3. We will reduce furosemide. 4. Probably can be released home tomorrow. He has been instructed not to drive. Long-term prognosis is very poor.
[2018-01-02] MEDS: Furosemide 20 MG TAB PO SCH (13:45)
[2018-01-03 05:30] LABS: Anion Gap 14 mmol/L (10-20); BUN (Urea Nitrogen) 42 mg/dL (8.4-25.7); Calc. Creatinine Clearance 24 mL/min (70-130); Calcium 8.7 mg/dL (7.8-10.44); Carbon Dioxide 26 mmol/L (23-31); Chloride 97 mmol/L (98-107); Estimated GFR-MDRD 26; Glucose 79 mg/dL (83-110); Potassium 4.2 mmol/L (3.5-5.1); Sodium 133 mmol/L (136-145)
[2018-01-03] MEDS: Calcitriol 0.25 MCG CAP PO SCH (07:52)
[2018-01-03] MEDS: Amiodarone 200 MG TAB PO SCH (07:53)
[2018-01-03] MEDS: Potassium Chloride 20 MEQ TAB PO SCH (07:53)
[2018-01-03] MEDS: Furosemide 20 MG TAB PO SCH (07:53)
[2018-01-03 08:49] VITALS: BP 95/63; TEMP 97.9
[2018-01-03] MEDS ORDERED: Amiodarone 200 MG TAB PO SCH (09:00)
== END 2018-01-03 11:32 | disposition home or self-care (01) | DRG 291 ==
LOC: ERS 11:58 → 2NO 14:15
PROVIDERS: ADMIT Family Medicine; ATTEND Family Medicine
DX: I13.0 Hypertensive heart and chronic kidney disease with heart failure and stage 1 through stage 4 chronic kidney disease, or unspecified chronic kidney disease (principal); I50.43 Acute on chronic combined systolic (congestive) and diastolic (congestive) heart failure; I47.2 Ventricular tachycardia; N18.4 Chronic kidney disease, stage 4 (severe); I25.5 Ischemic cardiomyopathy; I48.0 Paroxysmal atrial fibrillation; E78.5 Hyperlipidemia, unspecified; Z95.1 Presence of aortocoronary bypass graft; Z86.73 Personal history of transient ischemic attack (TIA), and cerebral infarction without residual deficits; Z95.810 Presence of automatic (implantable) cardiac defibrillator; I73.9 Peripheral vascular disease, unspecified
CPT/HCPCS: 36415; 71045; 80048; 80053; 81003; 82550; 82553; 83690; 83735; 83880; 84484; 85025; 93005; 93798; A4216; J1940

== ENCOUNTER 2018-01-22 15:25 | Inpatient (IN) | payer MEDICARE ==
[2018-01-22 15:47] LABS: #Eosinphils 0.2 thou/uL (0.0-0.7); #Lymphocytes 0.7 thou/uL (1.20-3.40); #Monocytes 0.4 thou/uL (0.11-0.59); #Neutrophils 2.9 thou/uL (1.40-6.50); %Basophils 0.3 % (0.0-1.0); %Eosinophils 4.3 % (0.0-10.0); %Lymphocytes 17.2 % (21.0-51.0); %Monocytes 10.4 % (0.0-10.0); %Neutrophils 67.8 % (42.0-75.0); Hemoglobin 12.8 g/dL (14.0-18.0); Mean Corpuscular Volume 97.2 fL (78.0-98.0); Mean Platelet Volume 8.7 fL (7.4-10.4); Platelet Count 180 thou/uL (130-400); White Blood Cell (WBC) Count 4.3 thou/uL (4.8-10.8)
[2018-01-22 16:10] LABS: ALT (SGPT) Less than 7 U/L (8-55); AST (SGOT) 11 U/L (5-34); Albumin 4.1 g/dL (3.4-4.8); Alkaline Phosphatase 47 U/L (40-150); Anion Gap 16 mmol/L (10-20); BUN (Urea Nitrogen) 48 mg/dL (8.4-25.7); CK (CPK) 51 U/L (30-200); Calc. Creatinine Clearance 0 mL/min (70-130); Calcium 9.1 mg/dL (7.8-10.44); Carbon Dioxide 28 mmol/L (23-31); Chloride 93 mmol/L (98-107); Estimated GFR-MDRD 19; Glucose 86 mg/dL (83-110); Lipase 27 U/L (8-78); Protein, Total 7.1 g/dL (5.8-8.1); Sodium 133 mmol/L (136-145)
[2018-01-22 16:15] LABS: CKMB 2.3 ng/mL (0-6.6); Troponin I 0.022 ng/mL (< 0.028)
--- NOTE | 2018-01-22 16:27 | RAD ---
SINGLE VIEW OF THE CHEST: 01/22/18 COMPARISON: 01/01/18 HISTORY: Chest pain and shortness of breath. FINDINGS: Single view of the chest shows an enlarged but stable cardiomediastinal silhouette. The patient is st atus post sternotomy. The pacemaker is unchanged in position. There is no evidence of consolidation, mass or pleural effusion. IMPRESSION: Cardiomegaly without evidence of acute cardiopulmonary disease. POS: [facility]
[2018-01-22] MEDS ORDERED: Acetaminophen 325 MG TAB PO PRN (17:51)
[2018-01-22] MEDS ORDERED: Furosemide 40 MG/4 ML VIAL ONE (18:02)
--- NOTE | 2018-01-22 18:41 | HP ---
PRIMARY CARE PROVIDER: None, patient is in the process of switching primary care providers, the [facility] ent was referred for admission of the [facility]. CHIEF COMPLAINT: Palpitations. HISTORY OF PRESENT ILLNESS: Mr. Catherine is a pleasant 87-year-old gentleman who was seen at [facility] on 01/14/2018. He was hospitalized at this facility on 01/01/2018 for ventricular tachycardia and syncope. He was d ischarged on 01/03/2018. He reports that he has on and off palpitations. He reports that it worsened over the last 2 days. Alma Rosa alexis reports chest discomfort associated with palpitations. He reports difficulty breathing when he has these fluttering episodes in his chest. He reports that he felt like he was about to pass out on se veral occasions, but did not pass out. He also reports leg swelling over the last week. He becomes very short of breath even with walking across the room. REVIEW OF SYSTEMS: All other systems reviewed and found to be negative. 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 PAST SURGICAL HISTORY: AICD placement, right carotid endarterectomy, coronary artery bypass graft x4 in 1997, multiple cardiac catheterizations with stent placement. ALLERGIES: RIVAROXABAN. CURRENT MEDICATIONS: Aspirin 81 mg daily, Lasix 60 mg 2 times a day, finasteride 5 mg daily, amiodar one 200 mg 2 times a day, potassium chloride 20 mEq daily, calcitriol 0.25 mcg daily, and metolazone 5 mg every other day. FAMILY HISTORY: Significant for congestive heart failure in his mother and myocardial infarction in his father and younger brother. CODE STATUS: I discussed his code status. He is DNR. SOCIAL HISTORY: He denies tobacco use, alcohol use or recreational drug use. PHYSICAL EXAMINATION: GENERAL: On examination, Mr. Catherine is awake and alert, not in acute distress. VITAL SIGNS: Blood pressure is 92/63, pulse 69, respiratory rate 20, and oxygen saturations 98% on r oom air. He is afebrile. EYES: No scleral icterus. No conjunctival pallor. ENT: Moist mucosal membranes, no oropharyngeal erythema or exudates. NECK: Supple, nontender, trachea is midline, he has jugular venous distention. RESPIRATORY: Accessory muscles of breathing are not active. Chest wall movements are symmetric bila terally. He has bibasilar crackles. CARDIOVASCULAR: S1 and S2 are heard, regular. Peripheral pulses palpable. No carotid bruit, no per icardial rub. ABDOMEN: Soft, nontender, bowel sounds are heard, no hepatomegaly, no splenomegaly. MUSCULOSKELETAL: Power is 5/5 in all 4 extremities. He has bilateral lower extremity edema. SKIN: Multiple bruises over his upper extremities. LYMPHATIC: No cervical lymphadenopathy. PSYCHIATRIC: Normal mood, normal affect. The patient is oriented to person, place and time. IMAGING DATA AND LABORATORY DATA: Mr. Catherine's labs and investigations were reviewed. He had an elect rocardiogram, which shows electronic AV paced rhythm, no ST changes to suggest an acute coronary synd beatris. He also had a chest x-ray, which shows cardiomegaly, no evidence of acute cardiopulmonary dise ase. He has leukopenia with 4300 white cells, normocytic anemia with hemoglobin 12.8, normal platele t count, decreased sodium of 133, normal potassium, elevated blood urea nitrogen of 48, elevated crea tinine of 3.14, last known creatinine 2.36 on 01/03/2018, unremarkable liver profile and elevated BNP of 3388, last known BNP was 3244 on 01/02/2018. His AICD was interrogated in the emergency room an d it reportedly showed a run of ventricular tachycardia on 01/20/2018, around which time, his symptom s were worsening according to the patient. ASSESSMENT AND PLAN: Mr. Catherine is a pleasant 87-year-old gentleman who was seen at [facility] on 01/22/2018. His problem list includes: 1. Ventricular tachycardia: Mr. Catherine is presenting with ventricular tachycardia. He will be admitt ed to the hospital for further management, including Cardiology Service consultation. 2. Chronic congestive heart failure, systolic and diastolic. While he is in the hospital, we will s witch him to intravenous furosemide. One of his main complaints is shortness of breath. 3. Acute on chronic renal failure: We will monitor creatinine and electrolytes. I will also consul t Nephrology Service for optimization of his renal function. 4. Hyponatremia: Mild, likely asymptomatic, we will recheck. LEVEL OF RISK: Moderate. LEVEL OF COMPLEXITY: Moderate.
[2018-01-22 19:20] LABS: Troponin I 0.033 ng/mL (< 0.028)
[2018-01-22] MEDS: Amiodarone 200 MG TAB PO SCH (21:49)
[2018-01-22 22:06] LABS: Troponin I 0.032 ng/mL (< 0.028)
[2018-01-22 22:50] VITALS: BMI 23.3
[2018-01-23] MEDS ORDERED: Sodium Chloride 0.9% 500 ML IVPB SCH ×2 (00:45→04:15)
[2018-01-23 05:31] LABS: #Eosinphils 0.2 thou/uL (0.0-0.7); #Lymphocytes 0.7 thou/uL (1.20-3.40); #Monocytes 0.4 thou/uL (0.11-0.59); #Neutrophils 2.2 thou/uL (1.40-6.50); %Basophils 0.4 % (0.0-1.0); %Eosinophils 4.6 % (0.0-10.0); %Lymphocytes 20.8 % (21.0-51.0); %Neutrophils 64.3 % (42.0-75.0); Mean Corpuscular Hemoglobin 31.7 pg (27.0-31.0); Mean Corpuscular Volume 95.9 fL (78.0-98.0); Mean Platelet Volume 8.7 fL (7.4-10.4); Platelet Count 156 thou/uL (130-400); RBC Distribution Width 13.8 % (11.5-14.5); Red Blood Cell (RBC) Count 3.49 mill/uL (4.70-6.10); White Blood Cell (WBC) Count 3.5 thou/uL (4.8-10.8)
[2018-01-23 05:39] LABS: Anion Gap 14 mmol/L (10-20); BUN (Urea Nitrogen) 44 mg/dL (8.4-25.7); Calc. Creatinine Clearance 21 mL/min (70-130); Calcium 8.2 mg/dL (7.8-10.44); Carbon Dioxide 26 mmol/L (23-31); Chloride 97 mmol/L (98-107); Estimated GFR-MDRD 22; Glucose 86 mg/dL (83-110); Potassium 3.3 mmol/L (3.5-5.1); Sodium 134 mmol/L (136-145)
[2018-01-23] MEDS: Furosemide 20 MG/2 ML VIAL SLOW IVP SCH ×2 (07:34→14:38)
[2018-01-23] MEDS: Potassium Chloride 20 MEQ TAB PO SCH (08:32)
[2018-01-23] MEDS: Calcitriol 0.25 MCG CAP PO SCH (08:32)
[2018-01-23] MEDS: Amiodarone 200 MG TAB PO SCH ×2 (08:32→21:15)
[2018-01-23] MEDS: Enoxaparin Sodium 30 MG/0.3 ML SYRINGE SC SCH (08:32)
[2018-01-23] MEDS: Finasteride 5 MG TAB PO SCH (08:32)
[2018-01-23] MEDS ORDERED: Enoxaparin Sodium 40 MG/0.4 ML SYRINGE SC SCH (09:00)
--- NOTE | 2018-01-23 10:36 | CON ---
DATE OF CONSULTATION: 01/23/2018 HISTORY OF PRESENT ILLNESS: Mr. Catherine is an 87-year-old white male who was admitted for palpitations with some mild shortness of breath. According to the patient, he [facility]. His diuretics was out recently. He has been having on and off palpitation. Wit h this palpitation, he developed some mild shortness of breath. He was empirically started on IV Las ix for a possible exacerbation of congestive heart failure. We are now being consulted for his acute kidney injury on top of his chronic renal failure. REVIEW OF SYSTEMS: Occasional palpitations, occasional mild shortness of breath. No nausea, no vomi ting, no leg edema. No syncopal episode, no productive cough, no fever or chills, no gross hematuria , no dysuria, no urinary frequency, no hematochezia, no melena, no hematemesis, no abdominal pain. E nergy level is decreased. No sore throat, occasional joint pains, no new skin rash. No tremors, no asterixis. MEDICATIONS: The patient is currently on Tylenol 650 mg q.4, Cordarone 200 mg p.o. b.i.d., calcitrio l 0.25 mcg every day, Lovenox 30 mg subcu day, Proscar 5 mg daily, Lasix 20 mg IV q.12 hours, K-Dur 2 0 mEq once a day. PAST MEDICAL HISTORY: Chronic renal failure - currently at stage IV, history of congestive heart flynn lure, history of cardiorenal syndrome, BPH, coronary artery disease, status post phimosis, post CVA, peripheral vascular disease, and hyperlipidemia. PAST SURGICAL HISTORY: 1. Status post AICD placement. 2. Status post cardiac catheterization. 3. Status post CABG. 4. Status post right CEA. 5. Status post circumcision. 6. Status post colonoscopy. SOCIAL HISTORY: The patient is and lives in [place], lives with his . He has three childr en. 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 No IV drug abuse . No history of smoking, no alcohol intake. Denies any blood transfusion. ALLERGIES: None. TRAUMA: None. IMMUNIZATIONS: Up to date. HOSPITALIZATIONS: Please see past medical history. FAMILY HISTORY: No family history of ESRD. PHYSICAL EXAMINATION: VITAL SIGNS: Blood pressure is noted at 94/61, heart rate 71, respiratory rate 16, temperature 97.7 and pulse ox 95%. GENERAL: Noted to be awake, supine, comfortable, not in overt distress. SKIN: Adequate turgor. HEENT: He has pinkish conjunctivae, anicteric sclerae. NECK: No neck mass, no carotid bruits, no JVD. CHEST: No deformities. LUNGS: Decreased breath sounds. HEART: Normal sinus rhythm. No murmurs, no gallops, no rubs. ABDOMEN: Globular, soft, nontender, no masses. EXTREMITIES: No edema. NEUROLOGIC: Moving all extremities. No tremors. No asterixis. No ataxia. LABORATORY DATA: Laboratories of 01/23/2018; white count 3.5, hemoglobin 11, sodium 134, potassium 3 .3, chloride 97, carbon dioxide 26, BUN 44, creatinine 2.76. On 01/22/2018, creatinine 3.14. On 03/2018, creatinine 2.36. IMAGING DATA: Chest x-ray of 01/22/2018 shows no overt CHF - cardiomegaly. ASSESSMENT AND PLAN: 1. Acute kidney injury on top of his chronic renal failure - the higher creatinine may reflect from the adjustment of his diuretics. The patient tells me his diuretics was recently increased by the [facility]. He is now currently on a lower dose of IV Lasix at 20 mg IV q.12. There is some stabilization and improvement of the renal function at the present time. He may simply have a super imposed hemodynamically mediated renal dysfunction on top of his chronic renal failure. There is no indication for any dialytic intervention. Agree with current management. 2. Mild hypokalemia on potassium supplementation. 3. Chronic renal failure secondary to presumed cardiorenal syndrome. 4. Congestive heart failure - currently on diuretic regimen. Adjust as needed. Agree with current management. Recheck base met in a.m.
--- NOTE | 2018-01-23 11:57 | PDOC.PN ---
- Subjective Encounter Start Date: 01/23/18 Encounter Start Time: 07:20 Pt seen for followup re: ventricular tachycardia. Denies chest pain. SOBOE+. No fevers or chills. - Objective MAR Reviewed: Yes Vital Signs & Weight: Vital Signs (12 hours) Temp Pulse Resp BP Pulse Ox 01/23/18 10:51 97.8 F 70 16 73/51 L 93 L 01/23/18 08:00 97.7 F 71 16 01/23/18 07:04 97.7 F 71 16 94/61 95 01/23/18 03:36 97.9 F 71 18 78/54 L 93 L Weight Weight 167 lb 1.6 oz I&O: 01/22/18 01/23/18 01/24/18 06:59 06:59 06:59 Intake Total 1480 500 Output Total 665 275 Balance 815 225 Result Diagrams: 01/23/18 04:57 01/23/18 04:57 EKG Reviewed by me: Yes (Tele: AV-paced) Phys Exam - Physical Examination Constitutional: NAD HEENT: moist MMs, sclera anicteric, oral pharynx no lesions, 2+ tonsils Neck: no nodes, supple, full ROM JVD Respiratory: no wheezing, no rhonchi evette crackles Cardiovascular: RRR, no rub S1, S2 Gastrointestinal: soft, non-tender, no distention, positive bowel sounds Musculoskeletal: edema present Neurological: moves all 4 limbs Psychiatric: normal affect, A&O x 3 Dx/Plan (1) CHF exacerbation Code(s): I50.9 - HEART FAILURE, UNSPECIFIED Status: Acute Comment: continue IV furosemide (2) V-tach Code(s): I47.2 - VENTRICULAR TACHYCARDIA Status: Acute Comment: continue quality assurance monitor body, cardiology consult pending (3) Acute on chronic renal failure Code(s): N17.9 - ACUTE KIDNEY FAILURE, UNSPECIFIED; N18.9 - CHRONIC KIDNEY DISEASE, UNSPECIFIED Status: Acute Comment: Improving (4) Hyponatremia Code(s): E87.1 - HYPO-OSMOLALITY AND HYPONATREMIA Status: Acute Comment: Improving (5) Hypokalemia Code(s): E87.6 - HYPOKALEMIA Status: Acute Comment: replace potassium - Plan * . Review of Systems - Review of Systems Constitutional: negative: fever, chills, sweats, weakness, malaise Respiratory: Shortness of Breath, SOB with Excertion. negative: Cough, Dry, Hemoptysis, Pleuritic Pain, Sputum, Wheezing Cardiovascular: negative: chest pain, palpitations, orthopnea, paroxysmal nocturnal dyspnea, edema, light headedness Gastrointestinal: negative: Nausea, Vomiting, Abdominal Pain, Diarrhea, Constipation, Melena, Hematochezia Genitourinary: negative: Dysuria, Frequency, Incontinence, Hematuria, Retention - Medications/Allergies Allergies/Adverse Reactions: Allergies Allergy/AdvReac Type Severity Reaction Status Date / Time rivaroxaban [From Xarelto] Allergy Verified 01/01/18 18:25 Medications: Current Medications Acetaminophen (Tylenol) 650 mg PO Q4H PRN PRN Reason: Headache/Fever or Pain Amiodarone HCl (Cordarone) 200 mg PO BID [facility] Last Admin: 01/23/18 08:32 Dose: 200 mg Calcitriol (Rocaltrol) 0.25 mcg PO DAILY [facility] Last Admin: 01/23/18 08:32 Dose: 0.25 mcg Enoxaparin Sodium (Lovenox) 30 mg SC 0900 [facility] Last Admin: 01/23/18 08:32 Dose: 30 mg Finasteride (Proscar) 5 mg PO DAILY [facility] Last Admin: 01/23/18 08:32 Dose: 5 mg Furosemide (Lasix) 20 mg SLOW IVP 0600,1400 [facility] Last Admin: 01/23/18 07:34 Dose: Not Given Potassium Chloride (K-Dur) 20 meq PO DAILY [facility] Last Admin: 01/23/18 08:32 Dose: 20 meq
[2018-01-23] MEDS ORDERED: Potassium Chloride 20 MEQ TAB PO SCH (12:15)
[2018-01-23] MEDS ORDERED: Nitroglycerin 0.4 MG TAB (25 Tab Bottle) SL PRN (18:00)
--- NOTE | 2018-01-23 19:14 | CON ---
DATE OF CONSULTATION: 01/23/2018 HISTORY OF PRESENT ILLNESS: Santos Catherine is an 87-year-old white male who is a longstanding patient of Dr. López. He has previously undergone bypass surgery in 1996. He had CABG x4 with vein grafts to the obtuse marginal, LAD and a sequential graft to the distal diagonal and a proximal diagonal. He underwent repeat catheterization in 03/2012. The LAD was occluded proximally. Circumflex was totally occluded and the right coronary artery was totally occluded. The only bypass graft that was patent was one to the obtuse marginal with apparently all the other grafts occluded. His ejection fraction was 15%. He has a biventricular ICD. He was just hospitalized earlier this month on January 01 with increased episodes of ventricular tachycardia. He was placed on increased dose of amiodarone. At discharge, he was put back on his baseline dose of 200 mg b.i.d. He was seen in the office on January 19 and he gained 5 pounds in 2 days. His OptiVol levels were found to be greater than 200. Lasix was increased to 40 mg q.a.m. and 20 mg. p.m. He has noted increased palpitations over the last 2-3 days with feeling as if he might pass out and increased shortness of breath with walking across room and he came to the emergency room. He also has some chest burning that is not associated with palpitations lasting 2-3 minutes. PAST MEDICAL HISTORY: Coronary artery disease, CABG, not a candidate for redo bypass surgery. Biventricular defibrillator, paroxysmal atrial fibrillation, not a candidate for Coumadin due to GI bleeding; renal insufficiency. OPERATIONS: Biventricular ICD placement, right carotid endarterectomy, CABG x4 in 1996. MEDICATIONS: Amiodarone 200 mg b.i.d., aspirin 81 daily, Rocaltrol 0.25 daily, Colace 100 mg at bedtime, Proscar 5 mg daily, furosemide 20 mg 2 q.a.m. and 1 q.p.m., nitroglycerin p.r.n., KCl 20 mEq daily. ALLERGIES: XARELTO, GI bleeding. SOCIAL HISTORY: Does not smoke or drink. FAMILY HISTORY: Myocardial infarction in brother and father. REVIEW OF SYSTEMS: A 12-point review of systems otherwise unremarkable. PHYSICAL EXAMINATION: VITAL SIGNS: Blood pressure 94/63, pulse of 70. HEENT: PERRL. NECK: Supple. CHEST: Reveals crackles at the right base. CARDIAC: S1, S2 normal without any S3, S4 or murmurs. ABDOMEN: Normal bowel sounds without tenderness. EXTREMITIES: Revealed no edema. NEUROLOGIC: Grossly intact. SKIN: Warm and dry. LABORATORY DATA: EKG reveals AV pacing. Chest x-ray revealed cardiomegaly without any specific abnormalities. Hemoglobin 11.0, hematocrit 33.4, white count 3500, platelets 156,000. Sodium 134, potassium 3.3, chloride 97, carbon dioxide 26, BUN 44, creatinine 2.76. Troponin I 0.033. BNP 3388.7. On interrogation of his ICD reveals fluid that is greater than 200. He also has episodes of ventricular tachycardia that are pace terminated. IMPRESSION: 1. Ventricular tachycardia. 2. Acute on chronic systolic and diastolic heart failure. 3. Hypotension and essentially on no beta imelda or TRACEY inhibitor. 4. Hyponatremia. 5. Peripheral vascular disease. 6. Paroxysmal atrial fibrillation. PLAN: Mr. Catherine will be diuresed. He already is on fairly high chronic dose of amiodarone, but continued to have ventricular tachycardia. He is not a candidate for use of beta imelda or TRACEY/ARB with his hypotension. We discussed his poor outlook and difficulties in trying to make the situation better. KEZIA
[2018-01-24] MEDS: Melatonin 3 MG TAB PO PRN ×2 (01:23→20:37)
[2018-01-24 05:45] LABS: Anion Gap 11 mmol/L (10-20); BUN (Urea Nitrogen) 42 mg/dL (8.4-25.7); Calc. Creatinine Clearance 21 mL/min (70-130); Calcium 8.8 mg/dL (7.8-10.44); Carbon Dioxide 26 mmol/L (23-31); Chloride 100 mmol/L (98-107); Estimated GFR-MDRD 22; Glucose 81 mg/dL (83-110); Potassium 4.4 mmol/L (3.5-5.1); Sodium 133 mmol/L (136-145)
[2018-01-24] MEDS: Furosemide 20 MG/2 ML VIAL SLOW IVP SCH ×2 (06:06→14:08)
[2018-01-24] MEDS: Calcitriol 0.25 MCG CAP PO SCH (08:20)
[2018-01-24] MEDS: Potassium Chloride 20 MEQ TAB PO SCH (08:20)
[2018-01-24] MEDS: Enoxaparin Sodium 30 MG/0.3 ML SYRINGE SC SCH (08:21)
[2018-01-24] MEDS: Amiodarone 200 MG TAB PO SCH ×2 (08:21→20:37)
[2018-01-24] MEDS: Finasteride 5 MG TAB PO SCH (08:21)
--- NOTE | 2018-01-24 10:35 | PRG ---
DATE OF SERVICE: 01/24/2018 SERVICE: Renal Medicine. SUBJECTIVE: Mr. Catherine is an 87-year-old white male who was seen by the Renal Service for his acute ki dney injury on top of his chronic renal failure. Please note, this patient has a history of congesti ve heart failure - systolic/diastolic heart failure. His breathing this morning is alright. Please note, adjustment of the diuretics was made due to the worsening renal dysfunction. His creatinine th is morning is improved at a value of 2.81. He continues to be on IV Lasix at 20 mg IV q.12 hours. N o other complaints. PHYSICAL EXAMINATION: VITAL SIGNS: Blood pressure is 85/59, heart rate 69, respiratory rate 16, temperature 97.9, pulse ox 96%. GENERAL: Awake, alert, comfortable, not in distress. SKIN: Adequate turgor. HEENT: He has pinkish conjunctivae, anicteric sclerae. NECK: No neck mass, no carotid bruits, no JVD. CHEST: No deformities. LUNGS: Decreased breath sounds, no wheezing, no crackles. HEART: Normal sinus rhythm. Grade 2/6 systolic murmur, no gallops or rubs. ABDOMEN: Globular, soft, nontender. EXTREMITIES: No edema. MEDICATIONS: Of 01/24/2018 was reviewed. LABORATORY DATA: Of 01/24/2018, sodium 133, potassium 4.4, chloride 100, carbon dioxide 26, BUN 42, creatinine 2.81, glucose 81, calcium 8.8. ASSESSMENT AND PLAN: 1. Acute kidney injury on top of his chronic renal failure, stabilizing renal function. Creatinine of 2.81 is nearing baseline. Please note, he was admitted with a creatinine of 3.14. He will contin ue the current IV diuretic regimen, no changes to be made with his medications. Should the renal fun ction further worsen, we may need to further decrease the Lasix if needed. 2. Chronic congestive heart failure - continue IV diuresis. 3. Coronary artery disease, stable. Cardiology has been following and recommendation is medical man agement. Overall, prognosis remains guarded.
--- NOTE | 2018-01-24 12:15 | PDOC.PN ---
- Subjective Encounter Start Date: 01/24/18 Encounter Start Time: 07:00 Pt seen for followup re: CHF exacerbation. Denies chest pain, fevers or chills. - Objective MAR Reviewed: Yes Vital Signs & Weight: Vital Signs (12 hours) Temp Pulse Resp BP Pulse Ox 01/24/18 11:36 98.0 F 70 16 97/63 100 01/24/18 08:00 97.8 F 69 16 01/24/18 07:37 97.8 F 69 16 85/59 L 96 01/24/18 06:05 72 85/59 L 01/24/18 04:00 98.0 F 71 18 80/47 L 97 01/24/18 00:17 95 Weight Weight 164 lb 12.8 oz I&O: 01/23/18 01/24/18 01/25/18 06:59 06:59 06:59 Intake Total 1480 1120 Output Total 665 895 Balance 815 225 Result Diagrams: 01/23/18 04:57 01/24/18 05:16 EKG Reviewed by me: Yes (Tele: NSR) Phys Exam - Physical Examination Constitutional: NAD HEENT: moist MMs, sclera anicteric, oral pharynx no lesions, 2+ tonsils Neck: no nodes, no JVD, supple, full ROM Respiratory: no wheezing, no rhonchi Rex crackles Cardiovascular: RRR, no rub S1, S2 Gastrointestinal: soft Musculoskeletal: edema present Neurological: moves all 4 limbs Psychiatric: normal affect Deviation from normal: Oriented to person and place, not to time Dx/Plan (1) CHF exacerbation Code(s): I50.9 - HEART FAILURE, UNSPECIFIED Status: Acute Comment: Improving , on IV furosemide (2) V-tach Code(s): I47.2 - VENTRICULAR TACHYCARDIA Status: Acute Comment: 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 Review of Systems - Review of Systems Constitutional: negative: fever, chills, sweats, weakness, malaise Respiratory: negative: Cough, Shortness of Breath, SOB with Excertion, Pleuritic Pain, Wheezing Cardiovascular: negative: chest pain, palpitations, orthopnea, paroxysmal nocturnal dyspnea, edema, light headedness Gastrointestinal: negative: Nausea, Vomiting, Abdominal Pain, Diarrhea, Constipation, Melena, Hematochezia Genitourinary: negative: Dysuria, Frequency, Incontinence, Hematuria, Retention - Medications/Allergies Allergies/Adverse Reactions: Allergies Allergy/AdvReac Type Severity Reaction Status Date / Time rivaroxaban [From Xarelto] Allergy Verified 01/01/18 18:25 Medications: Current Medications Acetaminophen (Tylenol) 650 mg PO Q4H PRN PRN Reason: Headache/Fever or Pain Last Admin: 01/23/18 17:43 Dose: 650 mg Amiodarone HCl (Cordarone) 200 mg PO BID [facility] Last Admin: 01/24/18 08:21 Dose: 200 mg Calcitriol (Rocaltrol) 0.25 mcg PO DAILY [facility] Last Admin: 01/24/18 08:20 Dose: 0.25 mcg Enoxaparin Sodium (Lovenox) 30 mg SC 0900 [facility] Last Admin: 01/24/18 08:21 Dose: 30 mg Finasteride (Proscar) 5 mg PO DAILY [facility] Last Admin: 01/24/18 08:21 Dose: 5 mg Furosemide (Lasix) 20 mg SLOW IVP 0600,1400 [facility] Last Admin: 01/24/18 06:06 Dose: 20 mg Melatonin (Melatonin) 3 mg PO HS PRN PRN Reason: Insomnia Last Admin: 01/24/18 01:23 Dose: 3 mg Nitroglycerin (Nitrostat) 0.4 mg SL Q5MIN PRN PRN Reason: Chest Pain Potassium Chloride (K-Dur) 20 meq PO DAILY [facility] Last Admin: 01/24/18 08:20 Dose: 20 meq
[2018-01-25 05:25] LABS: #Eosinphils 0.1 thou/uL (0.0-0.7); #Lymphocytes 0.6 thou/uL (1.20-3.40); #Monocytes 0.6 thou/uL (0.11-0.59); %Basophils 0.4 % (0.0-1.0); %Eosinophils 1.9 % (0.0-10.0); %Lymphocytes 11.4 % (21.0-51.0); %Monocytes 11.3 % (0.0-10.0); Hemoglobin 11.5 g/dL (14.0-18.0); Mean Corpuscular HGB CONC 33.4 g/dL (32.0-36.0); Mean Corpuscular Hemoglobin 32.2 pg (27.0-31.0); Mean Corpuscular Volume 96.2 fL (78.0-98.0); Mean Platelet Volume 8.7 fL (7.4-10.4); Platelet Count 129 thou/uL (130-400); RBC Distribution Width 13.9 % (11.5-14.5); Red Blood Cell (RBC) Count 3.56 mill/uL (4.70-6.10); White Blood Cell (WBC) Count 5.3 thou/uL (4.8-10.8)
[2018-01-25 05:40] LABS: Anion Gap 12 mmol/L (10-20); BUN (Urea Nitrogen) 43 mg/dL (8.4-25.7); Calc. Creatinine Clearance 20 mL/min (70-130); Calcium 8.9 mg/dL (7.8-10.44); Carbon Dioxide 26 mmol/L (23-31); Chloride 97 mmol/L (98-107); Estimated GFR-MDRD 22; Glucose 82 mg/dL (83-110); Potassium 4.2 mmol/L (3.5-5.1); Sodium 131 mmol/L (136-145)
[2018-01-25] MEDS: Furosemide 20 MG/2 ML VIAL SLOW IVP SCH ×2 (06:15→14:12)
[2018-01-25] MEDS: Enoxaparin Sodium 30 MG/0.3 ML SYRINGE SC SCH (07:49)
[2018-01-25] MEDS: Calcitriol 0.25 MCG CAP PO SCH (07:49)
[2018-01-25] MEDS: Amiodarone 200 MG TAB PO SCH ×2 (07:50→21:29)
[2018-01-25] MEDS: Potassium Chloride 20 MEQ TAB PO SCH (07:50)
[2018-01-25] MEDS: Finasteride 5 MG TAB PO SCH (07:50)
--- NOTE | 2018-01-25 13:06 | PRG ---
DATE OF SERVICE: 01/25/2018 SUBJECTIVE: Mr. Catherine is an 87-year-old white male admitted for shortness of breath. He has been sta rted on diuretics due to his congestive heart failure. We were following this patient for his acute kidney injury on top of his chronic renal failure. Please note renal function established in the las t few days with adjustment of his diuretics. His breathing is slightly improved. He still has a sli ght decrease in appetite. No new complaints of chest pain. OBJECTIVE: VITAL SIGNS: Blood pressure was 86/59, heart rate 68, respiratory rate 16, temperature 98.5, pulse o x 99%. GENERAL: Awake, supine, comfortable, not in overt distress. SKIN: adequate turgor. HEENT: He has pinkish conjunctivae, anicteric sclerae. NECK: No neck mass, no carotid bruits, no JVD. CHEST: No deformities. LUNGS: Decreased breath sounds. HEART: Normal sinus rhythm. No murmur, no gallops, no rubs. ABDOMEN: Globular, soft, nontender, no masses. EXTREMITIES: No edema, no deformities. MEDICATIONS: Of 01/25/2018 reviewed. LABORATORY: Of 01/25/2018: White count 5.3, hemoglobin 11.5, hematocrit 34.3. Sodium 131, potassiu m 4.2, chloride 97, carbon dioxide 26, BUN 43, creatinine 2.81, glucose 82, calcium 8.9. ASSESSMENT AND PLAN: 1. Acute kidney injury on top of his chronic renal failure, stable renal function. Creatinine 2.81 is near baseline. There is no indication for any dialytic intervention. Continue supportive care. Continue judicious use of diuretics. 2. Congestive heart failure - currently on IV Lasix. Continue current diuretic regimen. Clinically much improved. Currently, patient is asymptomatic. Overall, prognosis remains guarded. Agree with current management.
--- NOTE | 2018-01-25 13:37 | PDOC.PN ---
- Subjective Encounter Start Date: 01/25/18 Encounter Start Time: 07:00 Pt seen for followup re: CHF exacerbation. Denies chest pain. Denies light- headedness. Shortness of breath is better. - Objective MAR Reviewed: Yes Vital Signs & Weight: Vital Signs (12 hours) Temp Pulse Pulse Pulse Resp BP BP 01/25/18 11:57 97.6 F 68 16 01/25/18 09:05 87 75 86/59 L 91/63 01/25/18 08:00 98.5 F 68 16 01/25/18 07:47 98.5 F 68 16 01/25/18 06:11 72 01/25/18 04:00 98.5 F 71 16 BP Pulse Ox Pulse Ox 01/25/18 11:57 92/55 L 98 01/25/18 09:05 100 01/25/18 08:00 100 01/25/18 07:47 74/49 L 99 01/25/18 06:11 81/53 L 01/25/18 04:00 77/45 L 100 Weight Weight 166 lb 4.8 oz I&O: 01/24/18 01/25/18 01/26/18 06:59 06:59 06:59 Intake Total 1120 940 Output Total 895 1170 Balance 225 -230 Result Diagrams: 01/25/18 05:10 01/25/18 05:10 EKG Reviewed by me: Yes (Tele: AV paced) Phys Exam - Physical Examination Constitutional: NAD HEENT: moist MMs, sclera anicteric Neck: supple Rex crackles Cardiovascular: RRR Gastrointestinal: soft Neurological: moves all 4 limbs Psychiatric: normal affect Dx/Plan (1) CHF exacerbation Code(s): I50.9 - HEART FAILURE, UNSPECIFIED Status: Acute Comment: continue IV furosemide, monitor vital signs, creatinine and lytes (2) V-tach Code(s): I47.2 - VENTRICULAR TACHYCARDIA Status: Acute Comment: on tele monitor (3) Acute on chronic renal failure Code(s): N17.9 - ACUTE KIDNEY FAILURE, UNSPECIFIED; N18.9 - CHRONIC KIDNEY DISEASE, UNSPECIFIED Status: Acute Comment: creatinine stable today, continue to monitor creatinine and lytes (4) Hyponatremia Code(s): E87.1 - HYPO-OSMOLALITY AND HYPONATREMIA Status: Acute Comment: sodium 131 today - Plan * . Review of Systems - Review of Systems Respiratory: SOB with Excertion. negative: Cough, Shortness of Breath, Pleuritic Pain, Wheezing Cardiovascular: negative: chest pain, palpitations, orthopnea, paroxysmal nocturnal dyspnea, edema, light headedness - Medications/Allergies Allergies/Adverse Reactions: Allergies Allergy/AdvReac Type Severity Reaction Status Date / Time rivaroxaban [From Xarelto] Allergy Verified 01/01/18 18:25 Medications: Current Medications Acetaminophen (Tylenol) 650 mg PO Q4H PRN PRN Reason: Headache/Fever or Pain Last Admin: 01/23/18 17:43 Dose: 650 mg Amiodarone HCl (Cordarone) 200 mg PO BID [facility] Last Admin: 01/25/18 07:50 Dose: 200 mg Calcitriol (Rocaltrol) 0.25 mcg PO DAILY [facility] Last Admin: 01/25/18 07:49 Dose: 0.25 mcg Enoxaparin Sodium (Lovenox) 30 mg SC 0900 [facility] Last Admin: 01/25/18 07:49 Dose: 30 mg Finasteride (Proscar) 5 mg PO DAILY [facility] Last Admin: 01/25/18 07:50 Dose: 5 mg Furosemide (Lasix) 20 mg SLOW IVP 0600,1400 [facility] Last Admin: 01/25/18 06:15 Dose: 20 mg Melatonin (Melatonin) 3 mg PO HS PRN PRN Reason: Insomnia Last Admin: 01/24/18 20:37 Dose: 3 mg Nitroglycerin (Nitrostat) 0.4 mg SL Q5MIN PRN PRN Reason: Chest Pain Potassium Chloride (K-Dur) 20 meq PO DAILY [facility] Last Admin: 01/25/18 07:50 Dose: 20 meq
[2018-01-26] MEDS: Furosemide 20 MG/2 ML VIAL SLOW IVP SCH ×2 (05:21→13:51)
[2018-01-26 05:48] LABS: #Eosinphils 0.1 thou/uL (0.0-0.7); #Lymphocytes 0.7 thou/uL (1.20-3.40); #Monocytes 0.5 thou/uL (0.11-0.59); #Neutrophils 3.3 thou/uL (1.40-6.50); %Basophils 0.1 % (0.0-1.0); %Eosinophils 2.9 % (0.0-10.0); %Lymphocytes 15.5 % (21.0-51.0); %Monocytes 10.3 % (0.0-10.0); %Neutrophils 71.2 % (42.0-75.0); Hemoglobin 11.2 g/dL (14.0-18.0); Mean Corpuscular HGB CONC 32.6 g/dL (32.0-36.0); Mean Corpuscular Hemoglobin 31.5 pg (27.0-31.0); Mean Corpuscular Volume 96.7 fL (78.0-98.0); Mean Platelet Volume 8.8 fL (7.4-10.4); Platelet Count 141 thou/uL (130-400); RBC Distribution Width 13.9 % (11.5-14.5); Red Blood Cell (RBC) Count 3.57 mill/uL (4.70-6.10); White Blood Cell (WBC) Count 4.6 thou/uL (4.8-10.8)
[2018-01-26 06:01] LABS: Anion Gap 13 mmol/L (10-20); BUN (Urea Nitrogen) 45 mg/dL (8.4-25.7); Calc. Creatinine Clearance 20 mL/min (70-130); Carbon Dioxide 27 mmol/L (23-31); Chloride 96 mmol/L (98-107); Estimated GFR-MDRD 22; Glucose 80 mg/dL (83-110); Potassium 4.3 mmol/L (3.5-5.1); Sodium 132 mmol/L (136-145)
[2018-01-26] MEDS: Amiodarone 200 MG TAB PO SCH ×2 (08:58→20:33)
[2018-01-26] MEDS: Enoxaparin Sodium 30 MG/0.3 ML SYRINGE SC SCH (08:59)
[2018-01-26] MEDS: Potassium Chloride 20 MEQ TAB PO SCH (08:59)
[2018-01-26] MEDS: Calcitriol 0.25 MCG CAP PO SCH (08:59)
[2018-01-26] MEDS: Finasteride 5 MG TAB PO SCH (08:59)
--- NOTE | 2018-01-26 09:41 | PRG ---
DATE OF SERVICE: 01/26/2018 SUBJECTIVE: Mr. Catherine is an 87-year-old white male admitted for shortness of breath from CHF. He is breathing much better this morning. His renal function remains stable. He continues to be on diures is. No other complaints today. He is being followed up by Cardiology. OBJECTIVE: VITAL SIGNS: Blood pressure 87/61, heart rate 73, respiratory rate 16, temperature 98.2, pulse ox 95 %. GENERAL: The patient is awake, alert, sitting comfortable, not in distress. HEENT: He has pinkish conjunctivae, anicteric sclerae. NECK: No neck mass, no carotid bruits, no JVD. CHEST: No deformities. LUNGS: Decreased breath sounds. HEART: Normal sinus rhythm. Grade 2/6 systolic murmur, no gallops or rubs. ABDOMEN: Globular, soft, nontender. EXTREMITIES: No edema. MEDICATIONS: 01/26/2018 - Reviewed. LABORATORY DATA: 01/26/2018 - Sodium 132, potassium 4.3, chloride 96, carbon dioxide 27, BUN 45, cre atinine 2.78, glucose 80, calcium 9.0. ASSESSMENT AND PLAN: 1. Acute kidney injury/chronic renal failure, stabilizing renal function - superimposed prerenal azo temia. Creatinine is much improved and is now near baseline. Please note his creatinine peaked at 3 .14 and is currently at 2.78. Continue current diuretic regimen. No indication for any dialytic int ervention. 2. Congestive heart failure, clinically improving on IV diuretics.
[2018-01-26] MEDS ORDERED: guaiFENesin ER 600 MG TAB PO SCH (10:00)
--- NOTE | 2018-01-26 14:12 | PRG ---
DATE OF SERVICE: 01/26/2018 HISTORY: Mr. Catherine states he feels a little better. No chest pain or pressure. He is not short of b reath, but he is at rest. PHYSICAL EXAMINATION: VITAL SIGNS: Blood pressure 85/56, pulse 70 regular. LUNGS: Clear. CARDIAC: Normal S1, normal S2. ABDOMEN: Soft, nontender. EXTREMITIES: No edema. LABORATORY: Most recent creatinine 2.78. ASSESSMENT: 1. End-stage congestive heart failure. 2. Renal failure stage 4. 3. Relatively hypotensive. 4. Cannot take TRACEY inhibitors or beta blockers due to hypotension. 5. Cannot take anticoagulation due to bleeding. 6. Atrial fibrillation. PLAN: Continue current medical regimen, probably release home tomorrow.
--- NOTE | 2018-01-26 14:31 | PDOC.PN ---
- Subjective Encounter Start Date: 01/26/18 Encounter Start Time: 07:20 Pt seen for followup re: CHF exacerbation. Feel better. No shortness of breath , chest pain or palpitations. - Objective MAR Reviewed: Yes Vital Signs & Weight: Vital Signs (12 hours) Temp Pulse Pulse Pulse Resp BP BP 01/26/18 12:38 83 70 81/58 L 85/59 L 01/26/18 12:00 01/26/18 11:56 98.2 F 69 16 01/26/18 08:00 98.2 F 73 16 01/26/18 07:43 98.2 F 73 16 01/26/18 03:17 98.4 F 70 22 H BP Pulse Ox Pulse Ox Pulse Ox 01/26/18 12:38 99 96 01/26/18 12:00 98 01/26/18 11:56 85/56 L 98 01/26/18 08:00 95 01/26/18 07:43 87/61 L 95 01/26/18 03:17 86/62 L 95 Weight Weight 161 lb 1.6 oz I&O: 01/25/18 01/26/18 01/27/18 06:59 06:59 06:59 Intake Total 940 1300 300 Output Total 1170 1050 450 Balance -230 250 -150 Result Diagrams: 01/26/18 05:14 01/26/18 05:14 EKG Reviewed by me: Yes (Tele: AV-paced) Phys Exam - Physical Examination Constitutional: NAD HEENT: moist MMs Respiratory: clear to auscultation bilateral Cardiovascular: RRR Gastrointestinal: soft Neurological: moves all 4 limbs Psychiatric: normal affect Dx/Plan (1) CHF exacerbation Code(s): I50.9 - HEART FAILURE, UNSPECIFIED Status: Acute Comment: continue IV furosemide today (2) V-tach Code(s): I47.2 - VENTRICULAR TACHYCARDIA Status: Acute Comment: continue personnel monitor (3) Hyponatremia Code(s): E87.1 - HYPO-OSMOLALITY AND HYPONATREMIA Status: Acute Comment: Improving, sodium 132 today (4) Acute on chronic renal failure Code(s): N17.9 - ACUTE KIDNEY FAILURE, UNSPECIFIED; N18.9 - CHRONIC KIDNEY DISEASE, UNSPECIFIED Status: Resolved Comment: creatinine stable - Plan * . Review of Systems - Review of Systems Respiratory: negative: Cough, Shortness of Breath, SOB with Excertion, Pleuritic Pain, Wheezing Cardiovascular: negative: chest pain, palpitations, orthopnea, paroxysmal nocturnal dyspnea, edema, light headedness - Medications/Allergies Allergies/Adverse Reactions: Allergies Allergy/AdvReac Type Severity Reaction Status Date / Time rivaroxaban [From Xarelto] Allergy Verified 01/01/18 18:25 Medications: Current Medications Acetaminophen (Tylenol) 650 mg PO Q4H PRN PRN Reason: Headache/Fever or Pain Last Admin: 01/23/18 17:43 Dose: 650 mg Amiodarone HCl (Cordarone) 200 mg PO BID [facility] Last Admin: 01/26/18 08:58 Dose: 200 mg Calcitriol (Rocaltrol) 0.25 mcg PO DAILY [facility] Last Admin: 01/26/18 08:59 Dose: 0.25 mcg Enoxaparin Sodium (Lovenox) 30 mg SC 0900 [facility] Last Admin: 01/26/18 08:59 Dose: 30 mg Finasteride (Proscar) 5 mg PO DAILY [facility] Last Admin: 01/26/18 08:59 Dose: 5 mg Furosemide (Lasix) 20 mg SLOW IVP 0600,1400 [facility] Last Admin: 01/26/18 13:51 Dose: 20 mg Guaifenesin (Mucinex) 600 mg PO Q12HR [facility] Melatonin (Melatonin) 3 mg PO HS PRN PRN Reason: Insomnia Last Admin: 01/24/18 20:37 Dose: 3 mg Nitroglycerin (Nitrostat) 0.4 mg SL Q5MIN PRN PRN Reason: Chest Pain Potassium Chloride (K-Dur) 20 meq PO DAILY [facility] Last Admin: 01/26/18 08:59 Dose: 20 meq
[2018-01-26] MEDS: guaiFENesin ER 600 MG TAB PO SCH (20:33)
[2018-01-27] MEDS: Melatonin 3 MG TAB PO PRN (00:28)
[2018-01-27] MEDS: Furosemide 20 MG/2 ML VIAL SLOW IVP SCH (05:30)
[2018-01-27] MEDS: Amiodarone 200 MG TAB PO SCH (08:38)
[2018-01-27] MEDS: Calcitriol 0.25 MCG CAP PO SCH (08:38)
[2018-01-27] MEDS: Finasteride 5 MG TAB PO SCH (08:39)
[2018-01-27] MEDS: Potassium Chloride 20 MEQ TAB PO SCH (08:39)
[2018-01-27] MEDS: guaiFENesin ER 600 MG TAB PO SCH (08:39)
[2018-01-27] MEDS: Enoxaparin Sodium 30 MG/0.3 ML SYRINGE SC SCH (08:39)
--- NOTE | 2018-01-27 09:30 | PRG ---
DATE OF SERVICE: 01/27/2018 SUBJECTIVE: Mr. Catherine is an 87-year-old white male with end-stage heart disease, chronic renal failur e and was seen by the Renal Service for an acute kidney injury on top of chronic renal failure. Selena l function has stabilized with adjustment of his medications. The patient voices no new complaints. His breathing is comfortable. PHYSICAL EXAMINATION: VITAL SIGNS: Blood pressure 93/61, heart rate 70, respiratory rate 12, temperature 97.5, pulse ox 98 %. GENERAL: Noted to be awake, alert, comfortable, not in overt distress. SKIN: Adequate turgor. HEENT: He has pinkish conjunctivae, anicteric sclerae. NECK: No neck mass, no carotid bruits, no JVD. CHEST: No deformities. LUNGS: Clear breath sounds. No wheezing, no crackles. HEART: Normal sinus rhythm. No murmur, no gallops or rubs. ABDOMEN: Globular, soft, nontender. EXTREMITIES: No edema. MEDICATIONS: 01/27/2018 - Reviewed. LABORATORY DATA: 01/26/2018 - White count 4.6, hemoglobin 11.2, hematocrit 34.5. Sodium 132, potas sium 4.3, chloride 96, carbon dioxide 27, BUN 45, creatinine 2.78, calcium 9. ASSESSMENT AND PLAN: 1. Acute kidney injury/chronic renal failure. Stabilizing renal function. Creatinine now is near b aseline. Continue current supportive care. There is no indication for any dialytic intervention. C ontinue IV diuretics. In anticipation of planned discharge, consider shifting to p.o. diuretics. 2. Congestive heart failure - clinically asymptomatic. He has end-stage heart disease. He is not a candidate for any TRACEY inhibitors or ARB due to the low blood pressure and due to his renal dysfuncti on. I agree with current management. If the patient is discharged, we will follow him up at the [facility].
--- NOTE | 2018-01-27 10:37 | PRG ---
DATE OF SERVICE: 01/27/2018 SUBJECTIVE: Mr. Catherine is back to baseline in terms of his breathing, feels okay. No chest pain or pressure. PHYSICAL EXAMINATION: VITAL SIGNS: Blood pressure 93/61, pulse 70, it is irregular. LUNGS: Clear. CARDIAC: Irregular, no murmur, rub or gallop. ABDOMEN: Soft, nontender. EXTREMITIES: No edema. ASSESSMENT: 1. Congestive heart failure, systolic, acute on chronic, back to baseline. 2. Chronic hypotension, cannot tolerate TRACEY inhibitors or beta blockers. 3. Stage IV renal failure, creatinine is 2.78. PLAN: 1. Plan to go home on furosemide 40 mg twice a day. 2. He is on potassium 20 mEq a day. 3. Amiodarone 200 mg twice a day.
[2018-01-27 11:54] VITALS: BP 81/53; TEMP 98.1
--- NOTE | 2018-01-27 13:38 | DIS ---
PRIMARY CARE PHYSICIAN: Sandy Mackey DATE OF ADMISSION: 01/22/2018 DATE OF DISCHARGE: 01/27/2018 DISCHARGE DIAGNOSES: 1. Systolic congestive heart failure, acute on chronic. 2. Stage 4 chronic renal failure. CONDITION OF PATIENT ON THE DAY OF DISCHARGE: Stable. I assessed Mr. Catherine on the day of discharge. He denies any chest pain. Shortness of breath is lin r. He continues to be hypotensive. S1 and S2 are heard, regular. Lungs are clear to auscultation b ilaterally. CONSULTATIONS DURING THIS HOSPITALIZATION: Nephrology, Dr. Sweeney and Cardiology, Dr. Henriquez. DISCHARGE MEDICATIONS: Lasix 40 mg orally 2 times a day, Tylenol p.r.n., amiodarone 200 mg 2 times a day, aspirin 81 mg daily, calcitriol 0.25 mcg daily, Colace 100 mg at bedtime, Proscar 5 mg daily, N itrostat p.r.n., potassium chloride 20 mEq daily. HOSPITAL COURSE: Mr. Catherine is a pleasant 87-year-old gentleman who was admitted to [facility] for acute on chronic renal insufficiency as well as systolic congestive heart failure exacerbation on 01/22/2018. Please refer to my history and physical note for further information. He also had ventricular tachycardia at the time of presentation. He was seen by Cardiology Service. He is currently on amiodarone, which was continued. He received intravenous diuretics. Creatinine and electrolytes were followed closely, with Nephrology Service on board as well. His creatinine sta bilized, 2.78 on the day of discharge. He has not been started on imelda or TRACEY inhibitor because o f chronic hypotension. Many thanks for allowing me to participate in your patient's care. Please feel free to contact me wi th any questions or concerns. DISCHARGE DESTINATION: Home. TOTAL AMOUNT OF TIME SPENT COORDINATING THIS DISCHARGE: 31 minutes.
[2018-01-27] MEDS ORDERED: Furosemide 40 MG TAB PO SCH (14:00)
== END 2018-01-27 12:08 | disposition home health service (06) | DRG 291 ==
LOC: ERS 15:25 → 2SE 20:22
PROVIDERS: ADMIT Internal Medicine; ATTEND Internal Medicine
DX: I13.0 Hypertensive heart and chronic kidney disease with heart failure and stage 1 through stage 4 chronic kidney disease, or unspecified chronic kidney disease (principal); I50.43 Acute on chronic combined systolic (congestive) and diastolic (congestive) heart failure; N17.9 Acute kidney failure, unspecified; I47.2 Ventricular tachycardia; E87.1 Hypo-osmolality and hyponatremia; N18.4 Chronic kidney disease, stage 4 (severe); I25.10 Atherosclerotic heart disease of native coronary artery without angina pectoris; I25.5 Ischemic cardiomyopathy; I48.0 Paroxysmal atrial fibrillation; Z86.73 Personal history of transient ischemic attack (TIA), and cerebral infarction without residual deficits; I25.2 Old myocardial infarction; Z95.810 Presence of automatic (implantable) cardiac defibrillator; Z95.1 Presence of aortocoronary bypass graft; I95.9 Hypotension, unspecified; I50.84 End stage heart failure; I73.9 Peripheral vascular disease, unspecified; E87.6 Hypokalemia; F41.9 Anxiety disorder, unspecified
CPT/HCPCS: 36415; 71045; 80048; 80053; 82553; 83690; 83880; 84484; 85025; 93005; 93010; 93798; 96374; J1650; J1940

== ENCOUNTER 2018-03-03 15:37 | Inpatient (IN) | payer MEDICARE ==
[2018-03-03] MEDS ORDERED: Acetaminophen 325 MG TAB PO PRN (16:29)
[2018-03-03 16:53] LABS: #Eosinphils 0.1 thou/uL (0.0-0.7); #Lymphocytes 0.5 thou/uL (1.20-3.40); #Monocytes 0.4 thou/uL (0.11-0.59); #Neutrophils 3.5 thou/uL (1.40-6.50); %Basophils 0.3 % (0.0-1.0); %Eosinophils 2.2 % (0.0-10.0); %Lymphocytes 11.8 % (21.0-51.0); %Monocytes 8.8 % (0.0-10.0); %Neutrophils 76.9 % (42.0-75.0); Hemoglobin 11.6 g/dL (14.0-18.0); Mean Corpuscular HGB CONC 33.7 g/dL (32.0-36.0); Mean Corpuscular Hemoglobin 32.7 pg (27.0-31.0); Mean Platelet Volume 8.6 fL (7.4-10.4); Platelet Count 118 thou/uL (130-400); RBC Distribution Width 14.1 % (11.5-14.5); Red Blood Cell (RBC) Count 3.55 mill/uL (4.70-6.10); White Blood Cell (WBC) Count 4.6 thou/uL (4.8-10.8)
[2018-03-03 16:58] LABS: INR-International Normal Ratio 1.3; PTT 33.1 SEC (22.9-36.1)
[2018-03-03 17:18] VITALS: BMI 22.6
[2018-03-03 17:21] LABS: ALT (SGPT) 15 U/L (8-55); AST (SGOT) 14 U/L (5-34); Albumin 3.8 g/dL (3.4-4.8); Alkaline Phosphatase 46 U/L (40-150); Anion Gap 18 mmol/L (10-20); BUN (Urea Nitrogen) 68 mg/dL (8.4-25.7); Bilirubin, Total 1.4 mg/dL (0.2-1.2); Calc. Creatinine Clearance 18 mL/min (70-130); Calcium 8.9 mg/dL (7.8-10.44); Carbon Dioxide 25 mmol/L (23-31); Chloride 96 mmol/L (98-107); Estimated GFR-MDRD 19; Globulin 2.7 g/dL (2.4-3.5); Glucose 91 mg/dL (83-110); Potassium 3.5 mmol/L (3.5-5.1); Protein, Total 6.5 g/dL (5.8-8.1); Sodium 135 mmol/L (136-145)
[2018-03-03] MEDS ORDERED: Furosemide 20 MG/2 ML VIAL SLOW IVP SCH (17:45)
[2018-03-03] MEDS: DOBUTamine 500 mg/250 ml 500 MG in Premix Bag 1 BAG IVPB SCH (18:03)
[2018-03-04] MEDS: Furosemide 20 MG/2 ML VIAL SLOW IVP SCH ×2 (06:00→15:35)
[2018-03-04] MEDS: Amiodarone 200 MG TAB PO SCH (08:59)
[2018-03-04] MEDS: Aspirin 81 mg Enteric Coated Tablet PO SCH (08:59)
[2018-03-04] MEDS: Calcitriol 0.25 MCG CAP PO SCH (08:59)
[2018-03-04] MEDS ORDERED: Enoxaparin Sodium 40 MG/0.4 ML SYRINGE SC SCH ×2 (09:52→10:15)
[2018-03-04] MEDS ORDERED: Potassium Chloride 20 MEQ TAB PO SCH (10:00)
--- NOTE | 2018-03-04 10:25 | PRG ---
DATE OF SERVICE: 03/04/2018 HISTORY: Mr. Catherine is sleeping. He said he feels okay. He is making a little bit of urine, but not a lot of urine. He is on intravenous dobutamine at 5 mcg per kilogram per minute. PHYSICAL EXAMINATION: VITAL SIGNS: His blood pressure is 90/50, pulse 70. LUNGS: Clear. CARDIAC: No new murmur, rub or gallop. ABDOMEN: Soft, nontender. EXTREMITIES: Warm and dry. No clubbing, cyanosis, no edema. PERTINENT LABORATORY: His creatinine is 3.15. Estimated GFR is 19, stage IV renal failure. Potassi um is 3.5. Hemoglobin 11.6. ASSESSMENT: 1. Congestive heart failure, stage 4 short of breath at rest. 2. End-stage renal failure stage 4. 3. Atrial fibrillation, cannot be anticoagulated due to bleeding. 4. Cannot tolerate TRACEY inhibitors, beta blockers or angiotensin receptor blockers due to hypotension . 5. Paroxysmal atrial fibrillation. 6. Paroxysmal ventricular tachycardia. 7. Previous biventricular pacemaker defibrillator. PLAN: 1. He is on intravenous dobutamine. 2. Biventricular pacing. 3. We will repeat echocardiogram. 4. Prognosis very poor. Hopefully, can gain some quality of lifetime for him. He is not a candidat e for left ventricular assist device due to repetitive bleeding, cannot take anticoagulants and trans plantation not an option and at this age with this degree of renal failure.
[2018-03-04] MEDS: DOBUTamine 500 mg/250 ml 500 MG in Premix Bag 1 BAG IVPB SCH (15:35)
[2018-03-04] MEDS: Potassium Chloride 10 MEQ TAB PO SCH (18:11)
[2018-03-05 05:26] LABS: Anion Gap 14 mmol/L (10-20); BUN (Urea Nitrogen) 51 mg/dL (8.4-25.7); Calc. Creatinine Clearance 21 mL/min (70-130); Calcium 8.4 mg/dL (7.8-10.44); Carbon Dioxide 27 mmol/L (23-31); Chloride 97 mmol/L (98-107); Estimated GFR-MDRD 23; Glucose 84 mg/dL (83-110); Sodium 134 mmol/L (136-145)
[2018-03-05] MEDS: Furosemide 20 MG/2 ML VIAL SLOW IVP SCH ×2 (06:16→14:19)
--- NOTE | 2018-03-05 08:20 | RAD ---
CHEST ONE VIEW: History: CHF. Dyspnea. Comparison: 01-22-18 FINDINGS: Cardiac silhouette is magnified and enlarged. Pulmonary vasculature is slightly engorged with mild re ticular nodular interstitial prominence. Mediastinum is midline with aortic calcification, post-opera tive changes, and a multi-lead right subclavian cardiac electronic device. Right hemidiaphragm remain s elevated. No evidence of pneumothorax. IMPRESSION: Cardiomegaly. Mild pulmonary vascular congestion. POS: [facility]
[2018-03-05] MEDS ORDERED: Enoxaparin Sodium 40 MG/0.4 ML SYRINGE SC SCH (09:00)
[2018-03-05] MEDS: Amiodarone 200 MG TAB PO SCH (09:53)
[2018-03-05] MEDS: Aspirin 81 mg Enteric Coated Tablet PO SCH (09:53)
[2018-03-05] MEDS: Potassium Chloride 10 MEQ TAB PO SCH ×2 (09:53→17:17)
[2018-03-05] MEDS: Calcitriol 0.25 MCG CAP PO SCH (09:53)
--- NOTE | 2018-03-05 10:08 | PRG ---
DATE OF SERVICE: 03/05/2018 HISTORY: Mr. Catherine feels somewhat better. He is having better diuresis this morning, he still feels weak. He is not short of breath at rest. PHYSICAL EXAMINATION: VITAL SIGNS: Blood pressure is 90/50, pulse 70. LUNGS: Clear anteriorly. Posteriorly, there are a few rales. CARDIAC: Normal S1, normal S2. ABDOMEN: Soft, nontender. EXTREMITIES: There is no edema. ASSESSMENT: 1. Congestive heart failure, systolic, stage 4. 2. Renal failure stage 4. 3. Atrial fibrillation, currently atrial and ventricular pacing. PLAN: 1. Continue intravenous dobutamine. 2. OptiVol to be checked.
[2018-03-05] MEDS: DOBUTamine 500 mg/250 ml 500 MG in Premix Bag 1 BAG IVPB SCH (17:17)
[2018-03-06] MEDS: Furosemide 20 MG/2 ML VIAL SLOW IVP SCH (05:55)
[2018-03-06] MEDS ORDERED: Enoxaparin Sodium 30 MG/0.3 ML SYRINGE SC SCH (09:00)
[2018-03-06] MEDS: Aspirin 81 mg Enteric Coated Tablet PO SCH (09:16)
[2018-03-06] MEDS: Potassium Chloride 10 MEQ TAB PO SCH ×2 (09:16→16:24)
[2018-03-06] MEDS: Calcitriol 0.25 MCG CAP PO SCH (09:16)
[2018-03-06] MEDS: Amiodarone 200 MG TAB PO SCH (09:16)
[2018-03-06 09:22] LABS: Bilirubin Negative (Negative); Blood, Urine Negative (Negative); Clarity CLOUDY (Clear); Glucose, Urine (Dipstick) Negative (Negative); Leukocyte Large (Negative); Nitrite Negative (Negative); Protein, Urine (Dipstick) Negative (Neg-Trace); Specific Gravity, Urine 1.008 (1.002-1.036); pH, Urine 7.5 (5.0-9.0)
[2018-03-06 10:01] LABS: Squamous Epithelial 0-3 HPF (0-3)
[2018-03-06 10:02] LABS: Bacteria/HPF 1+ HPF (None Seen); Hyaline Casts/LPF 0-3 HYALINE CAST LPF (0-3 Hyaline)
[2018-03-06 10:12] LABS: RBC/HPF 0-3 HPF (0-3)
[2018-03-06] MEDS ORDERED: Sulfameth/Trimethoprim DS 800-160mg TAB PO SCH ×3 (13:57→21:00)
[2018-03-06 15:09] VITALS: BP 84/55; TEMP 97.7
[2018-03-06] MEDS ORDERED: DOBUTamine 500 mg/250 ml 500 MG in Premix Bag 1 BAG IVPB SCH (16:30)
--- NOTE | 2018-03-06 20:50 | DIS ---
Mr. Catherine is breathing somewhat better today. His only complaint is burning on urination. He was fou nd to have urinary tract infection. The patient otherwise is doing well and will be released home with the following discharge diagnoses. DISCHARGE DIAGNOSES: 1. Congestive heart failure, systolic/diastolic combined, stage 4. 2. Hypotension. 3. Unable to tolerate TRACEY inhibitors or beta blockers due to hypotension. 4. Atrial fibrillation, paroxysmal. 5. Previous biventricular pacemaker defibrillator. 6. Cystitis. 7. Coronary artery disease. 8. Renal failure stage IV. Prognosis nursing home is poor. DISCHARGE MEDICATIONS: 1. Amiodarone 200 mg a day for atrial fibrillation and ventricular arrhythmias. 2. Furosemide 60 mg twice a day starting Friday. 3. Potassium 20 mEq a day starting Friday. 4. Bactrim-DS 1 twice a day for 7 days for urinary infection. 5. Aspirin 81 mg a day. 6. Cannot be anticoagulated due to recurrent bleeding on anticoagulants. 7. Cannot tolerate TRACEY inhibitors or beta blockers due to hypotension. 8. Not on statin drugs due to advanced heart disease with generalized weakness.
--- NOTE | 2018-03-13 18:05 | PQF ---
LAMBERTO JARAMILLO KENNON D MD [id number] [facility]-[id number] CLINICAL DOCUMENTATION CLARIFICATION FORM: POST DISCHARGE Please exercise your independent, professional judgment in responding to the clarification form. Clinical indicators are provided on the bottom of this form for your review Please check appropriate box(s): HEART FAILURE: A. TYPE: [ ] Systolic / HFrEF [ ] Diastolic / HFpEF [ ] Combined Systolic / Diastolic B. ACUITY [ ] Acute [ ] Acute on Chronic [ ] Chronic [ ] Other diagnosis [ ] Unable to determine In addition, please specify: Present on Admission (POA): [ ] Yes [ ] No [ ] Unable to determine For continuity of documentation, please document condition throughout progress notes and discharge summary. Thank You. CLINICAL INDICATORS - SIGNS / SYMPTOMS / LABS Echo 03/04/2018 Ejection Fraction =_15-20 %, moderate to severe tricuspid regurgitation, mild aortic regurgitation, moderate mitral regurgitation, left ventricular size is severely increased, left atrium is moderately to severely dilated. CXR 03/05/2018 - cardiomegaly, mild pulmonary vascular congestion. Congestive heart failure, systolic/diastolic combined, stage 4 RISKS: Atrial Fibrillation, CHF TREATMENTS: Furosemide 20mg IV - 03/03/2018, 03/04/2018 - orders CPOE Discharged on Furosemide 60mg twice a day starting Friday - Discharge Summary (This form is maintained as a part of the permanent medical record) SAP Implementation Manager [employer] [id number], [employer]. All Rights Reserved Bertha Schuster, CCS, ICT MANAG[employer], CASC [email or web address] MTDD
--- NOTE | 2018-03-13 18:31 | PQF ---
SAP Freight Elevator Operator [employer] LAMBERTO Edmond KENNON D MD [id number] [facility]-239 [id number] CLINICAL DOCUMENTATION CLARIFICATION FORM: POST DISCHARGE Please exercise your independent, professional judgment in responding to the clarification form. Clinical indicators are provided on the bottom of this form for your review. Thank you. Please check appropriate box(s): Conflicting documentation was noted in the Medical Record, please clarify if patient is being treated/monitored for: [ ] _CKD stage 4 [ ]_ End Stage renal failure [ ] Other diagnosis [ ] Unable to determine In addition, please specify: Present on Admission (POA): [ ] Yes [ ] No [ ] Unable to determine For continuity of documentation, please document condition throughout progress notes and discharge summary. Thank You. CLINICAL INDICATORS - SIGNS / SYMPTOMS/ LABS Progress Note date 03/04/2018 documents End-stage renal failure stage 4. Progress Note dated 03/05/2018 documents Renal failure stage 4. BUN/Creat 03/03/18 = 68/3.15, 03/05/2018 = 51/2.67 [id number] 03/03/18 = 19, 03/05/18 = 23 RISK FACTORS CHF - Progress Note 03/04/18 TREATMENT Furosemide IV, Amiodarone - CPOE Insert treatment supporting diagnosis (This form is maintained as a part of the permanent medical record) 2014 [employer], [email or web address]. All Rights Reserved Bertha Schuster, CCS, SALES RECRUITING COORDINATOR, CASC [email or web address]
== END 2018-03-06 16:43 | disposition home or self-care (01) | DRG 292 ==
LOC: UNDOADMIN 15:37 → 2SW 15:37 → OBSVTOIN 03-04 09:51 → 2NO 03-05 16:09
PROVIDERS: ADMIT Internal Medicine Cardiovascular Disease; ATTEND Internal Medicine Cardiovascular Disease
DX: I50.40 Unspecified combined systolic (congestive) and diastolic (congestive) heart failure (principal); N18.4 Chronic kidney disease, stage 4 (severe); I47.2 Ventricular tachycardia; I48.0 Paroxysmal atrial fibrillation; I95.9 Hypotension, unspecified; I25.10 Atherosclerotic heart disease of native coronary artery without angina pectoris; N30.90 Cystitis, unspecified without hematuria; Z95.810 Presence of automatic (implantable) cardiac defibrillator
CPT/HCPCS: 36415; 71045; 80048; 80053; 81001; 85025; 85610; 85730; 87086; 93306; 93798; A4216; J1250; J1650; J1940

== ENCOUNTER 2018-03-10 17:00 | Emergency (ER) | payer MEDICARE ==
[2018-03-10 17:42] LABS: #Eosinphils 0.1 thou/uL (0.0-0.7); #Lymphocytes 0.5 thou/uL (1.20-3.40); #Monocytes 0.4 thou/uL (0.11-0.59); #Neutrophils 3.7 thou/uL (1.40-6.50); %Eosinophils 2.5 % (0.0-10.0); %Monocytes 8.2 % (0.0-10.0); %Neutrophils 79.4 % (42.0-75.0); Hemoglobin 11.3 g/dL (14.0-18.0); Mean Corpuscular HGB CONC 34.2 g/dL (32.0-36.0); Mean Corpuscular Hemoglobin 32.9 pg (27.0-31.0); Mean Corpuscular Volume 96.4 fL (78.0-98.0); Mean Platelet Volume 9.6 fL (7.4-10.4); Platelet Count 167 thou/uL (130-400); RBC Distribution Width 14.6 % (11.5-14.5); Red Blood Cell (RBC) Count 3.43 mill/uL (4.70-6.10); White Blood Cell (WBC) Count 4.6 thou/uL (4.8-10.8)
[2018-03-10 17:58] LABS: ALT (SGPT) 64 U/L (8-55); AST (SGOT) 72 U/L (5-34); Albumin 3.8 g/dL (3.4-4.8); Alkaline Phosphatase 68 U/L (40-150); Anion Gap 17 mmol/L (10-20); BUN (Urea Nitrogen) 50 mg/dL (8.4-25.7); CK (CPK) 43 U/L (30-200); Calc. Creatinine Clearance 0 mL/min (70-130); Calcium 8.9 mg/dL (7.8-10.44); Carbon Dioxide 23 mmol/L (23-31); Chloride 96 mmol/L (98-107); Estimated GFR-MDRD 16; Globulin 2.8 g/dL (2.4-3.5); Glucose 106 mg/dL (83-110); Potassium 4.3 mmol/L (3.5-5.1); Protein, Total 6.6 g/dL (5.8-8.1); Sodium 132 mmol/L (136-145)
[2018-03-10 18:03] LABS: CKMB 1.8 ng/mL (0-6.6)
[2018-03-10 18:32] LABS: Bilirubin Small (Negative); Blood, Urine Negative (Negative); Clarity CLEAR (Clear); Glucose, Urine (Dipstick) Negative (Negative); Leukocyte Negative (Negative); Nitrite Negative (Negative); Protein, Urine (Dipstick) Negative (Neg-Trace); Specific Gravity, Urine 1.013 (1.002-1.036)
--- NOTE | 2018-03-10 19:01 | RAD ---
RADIOGRAPH CHEST 1 VIEW: Date: 03/10/2018 Time: 4:42 p.m. HISTORY: An 87-year-old male with dyspnea. COMPARISON: 03/05/2018 FINDINGS: Right subclavian multilead AICD. Sternotomy wires. Cardiomegaly with left ventricular configuration . Prominent interstitial markings, but no bhavik pulmonary alveolar edema. Generator for the pacemak er obscures right perihilar and mid-lower lung zones. No pneumothorax. Lateral costophrenic angles are sharp. No significant interval change. IMPRESSION: 1. Cardiomegaly. 2. Status post open heart surgery. 3. Automatic implantable cardioverter/defibrillator. 4. No pulmonary edema. SHELBY [] POS: [facility]
== END 2018-03-10 19:40 | disposition home or self-care (01) ==
LOC: ERS 17:00
DX: I11.0 Hypertensive heart disease with heart failure (principal); I50.9 Heart failure, unspecified; I48.91 Unspecified atrial fibrillation; I25.10 Atherosclerotic heart disease of native coronary artery without angina pectoris; F41.9 Anxiety disorder, unspecified; Z79.899 Other long term (current) drug therapy; Z79.82 Long term (current) use of aspirin
CPT/HCPCS: 36415; 71045; 80053; 81003; 82553; 83880; 84484; 85025; 93005; 96360

== ENCOUNTER 2018-03-16 10:38 | Observation (INO) | payer MEDICARE ==
[2018-03-16 12:32] LABS: Hemoglobin 11.5 g/dL (14.0-18.0); Mean Corpuscular HGB CONC 33.1 g/dL (32.0-36.0); Mean Corpuscular Hemoglobin 32.3 pg (27.0-31.0); Mean Corpuscular Volume 97.6 fL (78.0-98.0); Mean Platelet Volume 8.6 fL (7.4-10.4); Platelet Count 197 thou/uL (130-400); RBC Distribution Width 14.7 % (11.5-14.5); Red Blood Cell (RBC) Count 3.55 mill/uL (4.70-6.10); White Blood Cell (WBC) Count 5.6 thou/uL (4.8-10.8)
[2018-03-16 12:47] LABS: Anisocytosis SLIGHT = 6-15 cells (100X) (0-5/hpf); Band 2 % (5-11); Burr Cells SLIGHT = 2-5 cells (100X) (0-1/hpf); Lymphocytes 8 % (21-51); MDiff Complete? YES; Monocytes 3 % (0-10); Neutrophil 85 % (42-75); Ovalocytes SLIGHT = 2-5 cells (100X) (0-1/hpf); PLT Morphology Comment Appears Adequate; Polychromasia MODERATE = 3-4 cells (100X) (0-2/hpf); Reactive Lymphocytes 1 % (0-10)
[2018-03-16 12:53] LABS: ALT (SGPT) 106 U/L (8-55); AST (SGOT) 52 U/L (5-34); Albumin 3.4 g/dL (3.4-4.8); Alkaline Phosphatase 74 U/L (40-150); Anion Gap 16 mmol/L (10-20); BUN (Urea Nitrogen) 54 mg/dL (8.4-25.7); Bilirubin, Total 0.9 mg/dL (0.2-1.2); CK (CPK) 62 U/L (30-200); Calc. Creatinine Clearance 0 mL/min (70-130); Calcium 8.5 mg/dL (7.8-10.44); Carbon Dioxide 20 mmol/L (23-31); Chloride 97 mmol/L (98-107); Estimated GFR-MDRD 13; Globulin 2.8 g/dL (2.4-3.5); Glucose 98 mg/dL (83-110); Potassium 4.5 mmol/L (3.5-5.1); Protein, Total 6.2 g/dL (5.8-8.1); Sodium 128 mmol/L (136-145)
[2018-03-16 12:58] LABS: CKMB 3.5 ng/mL (0-6.6); Troponin I 0.012 ng/mL (< 0.028)
--- NOTE | 2018-03-16 13:09 | RAD ---
AP CHEST: History: Dyspnea. Date: 03-16-18 Comparison: 03-10-18 FINDINGS: AP chest demonstrates sternotomy wires seen. There is a dual-lead intracardiac defibrillator. Cardiom egaly noted. Moderate degree of pulmonary vascular congestion seen. No evidence of effusions seen. IMPRESSION: Cardiomegaly and pulmonary vascular congestion. POS: [facility]
[2018-03-16] MEDS ORDERED: Acetaminophen 325 MG TAB PO PRN (15:57)
[2018-03-16] MEDS ORDERED: Ondansetron ODT 4 MG TAB PO PRN (15:57)
[2018-03-16 16:30] VITALS: BMI 23.2
--- NOTE | 2018-03-16 16:35 | HP ---
PRIMARY CARE PROVIDER: Otto Jules M.D. POWER TOOL REPAIRER: Magdalene López M.D. Referred to the [facility] Service by [facility] after being referred to the emergency room by Dr. López, by the [facility]. HISTORY OF PRESENT ILLNESS: Patient has marked shortness of breath, 2-pillow orthopnea, occasional p aroxysmal nocturnal dyspnea, marked dyspnea on exertion with any effort. His last hospitalization wa s 2 weeks ago. He was tried on dobutamine with no response. He fails to respond to Lasix now. He i s in acute on chronic systolic heart failure at the present time. Patient has a history of atrial fi brillation and has a defibrillator. REVIEW OF SYSTEMS: Constitutional: No headaches. He does have blackout spells when his rate gets t oo high and the defibrillator triggers and this has happened several times in the past weeks/months. Eyes: No double vision or blurred vision. Ears, Nose, and Throat: No ear pain or drainage. No na darryl bleeding. No trouble swallowing. Cardiac: No pressure chest pain. Otherwise, see present illn ess. Respiratory: Cough, no wheezing, dyspnea on exertion, no history of asthma. Gastrointestinal: Some occasional nausea. No real vomiting, no abdominal pain, no diarrhea. Genitourinary: No elizabeth turia, or dysuria. Musculoskeletal: Positive swelling in his legs. No particular muscle or joint p ains. Neurological: No strokes, seizures, or focal weakness. Psychiatric: No anxiety or depressio n. Skin: Easy bruising on arms or legs. Heme/Lymph: No tender or swollen lymph nodes in the axill a, inguinal, or cervical area. CURRENT MEDICATIONS: Potassium chloride 20 mEq a day, Nitrostat 0.4 mg every 5 minutes p.r.n., Lasix 60 mg twice a day, Proscar 5 mg a day, aspirin 81 mg a day, amiodarone 200 mg a day, Zofran 4 mg ora l dissolving tablet p.r.n. ALLERGIES: He is allergic to XARELTO. PAST SURGICAL HISTORY: AICD placement, right carotid endarterectomy, coronary artery bypass graft in 1997, multiple cardiac catheterizations with stent placement. PAST MEDICAL HISTORY: Includes coronary artery disease with chronic systolic and diastolic heart flynn lure, ischemic cardiomyopathy, paroxysmal atrial fibrillation, stage 4 chronic kidney disease, histor y of stroke in the past, subdural hematoma in 2018. FAMILY HISTORY: Heart failure in his mother, myocardial infarction in his father and younger brother . SOCIAL HISTORY: No tobacco, alcohol, or recreational drug use. He is a DNR, confirmed with him and the family. PHYSICAL EXAMINATION: CURRENT VITAL SIGNS: 97/67 blood pressure, pulse 70, respirations 21, O2 sat 90 on 3 liters of O2. His initial sat was 87 on room air. He has been as low as 85 on 3 liters of O2. GENERAL: He is an alert, cooperative, pleasant gentleman, family at bedside. HEENT: Pupils equal, round, reactive. Extraocular movements are intact. Sclerae white. Tympanic m embranes clear. Nose clear. Oral mucous membranes wet. NECK: Jugular venous distension at 30 degrees. CHEST: Rales to mid scapula posteriorly, decreased breath sounds anteriorly. HEART: Regular rate and rhythm. First and second heart sounds are normal. No murmurs. ABDOMEN: Soft, bowel sounds normal. No hepatosplenomegaly, no mass, no rebound. EXTREMITIES: Reveal [id number] edema, no cyanosis or clubbing. PULSES: Carotid, radial, femoral, and dorsalis pedis pulses intact. SKIN: Warm and dry with ecchymoses diffusely in his arms and legs. HEME/LYMPH: No tender or swollen lymph nodes in axilla, inguinal, or cervical area. NEUROLOGICAL: Cranial nerves II-XII are intact. Deep tendon reflexes symmetric. X-RAY FINDINGS: Chest x-ray: Cardiomegaly, pulmonary vascular congestion, defibrillator AICD in the right lateral chest, reviewed by me. LABORATORY DATA: Hemoglobin 11.5, white count 5.6, platelet count 107,000. Creatinine 4.23 with chr onic kidney disease, stage 5; BUN 54; CO2 of 20; sodium 128; potassium 4.5. BNP 4866, troponin 0.012 . ADMITTING DIAGNOSES: 1. Acute on chronic systolic and diastolic heart failure, refractory to diuretics, dobutamine. 2. Chronic respiratory failure with hypoxemia, O2 dependent. 3. Coronary artery disease. 4. Ischemic cardiomyopathy. 5. Chronic kidney disease, stage 5. PLAN: Observation status, resume home medicines. Palliative care/hospice consult. I have discussed all of this with the patient's and daughter.
--- NOTE | 2018-03-17 13:38 | PRG ---
DATE OF SERVICE: 03/17/2018 SUBJECTIVE: Mr. Catherine awakens easily. PHYSICAL EXAMINATION: GENERAL: He is alert, just feels weak with any activity. VITAL SIGNS: Blood pressure 92/59, pulse 70s and regular. LUNGS: Clear anteriorly and laterally. CARDIAC: Normal S1, normal S2. ABDOMEN: Soft, nontender. EXTREMITIES: No edema. ASSESSMENT: 1. 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 2. Paroxysmal atrial fibrillation. PLAN: 1. The patient is palliative care, do not resuscitate. 2. Take furosemide daily and metolazone if needed. 3. Continue amiodarone. Goal of therapy is to try to reduce pain and suffering, to keep him at home as much as possible. His creatinine is 4.23, near end-stage renal disease, not a candidate for dialysis with this hypotension and heart failure.
--- NOTE | 2018-03-17 13:59 | DIS ---
TRANSFER OF CARE NOTE DATE OF ADMISSION: 03/16/2018 DATE OF DISCHARGE: 03/17/2018 DISCHARGE DISPOSITION: Home with hospice. PRIMARY CARE PROVIDER: Dr. Otto Jules. SALESPERSON JEWELRY: Magdalene López M.D. FINAL DIAGNOSES: 1. Acute on chronic systolic heart failure refractory to diuretics dobutamine. 2. Chronic respiratory failure with hypoxemia, O2 dependent. 3. Coronary artery disease. 4. Cardiomyopathy. 5. Chronic kidney disease, 5. DISCHARGE MEDICATIONS: He is going home on hospice. We have listed his home medicines; potassium ch loride 20 mEq a day, Lasix 60 mg twice a day, Proscar 5 mg a day, aspirin 81 mg a day, amiodarone 200 mg a day, Zofran 4 mg oral dissolving tablet p.r.n. ALLERGIES: XARELTO. CODE STATUS: DNR. DIET: No restrictions at this point. HOSPITAL COURSE: The patient with refractory heart failure. He was seen in the emergency room and a dmitted for an observation basis. Palliative Care and Hospice were consulted. The patient is going home on [facility]. His initial exam revealed rales to mid scapula posteriorly, regular rate and rhythm. X-ray findings revealed cardiomegaly with pulmonary vascular congestion. His creatinin e revealed a 4.23 chronic kidney disease stage 5, not on dialysis. Potassium 4.5. In talking with the family and with the patient he is being discharged on hospice who will manage his medications. He will be followed up by hospice. His prognosis is poor. He will also be on home O2 , currently requiring sometimes face mass with greater than 5 liters of O2.
[2018-03-17 15:00] VITALS: BP 94/59; TEMP 97.8
== END 2018-03-17 15:15 | disposition hospice, home (50) ==
LOC: ERS 10:38 → T4-B 13:53
PROVIDERS: ADMIT Internal Medicine; ATTEND Internal Medicine
DX: I50.43 Acute on chronic combined systolic (congestive) and diastolic (congestive) heart failure (principal); N18.5 Chronic kidney disease, stage 5; I48.0 Paroxysmal atrial fibrillation; I25.10 Atherosclerotic heart disease of native coronary artery without angina pectoris; I25.5 Ischemic cardiomyopathy; J96.11 Chronic respiratory failure with hypoxia; Z86.73 Personal history of transient ischemic attack (TIA), and cerebral infarction without residual deficits; Z79.82 Long term (current) use of aspirin; Z79.899 Other long term (current) drug therapy; Z88.8 Allergy status to other drugs, medicaments and biological substances; Z99.81 Dependence on supplemental oxygen; Z95.810 Presence of automatic (implantable) cardiac defibrillator; Z95.1 Presence of aortocoronary bypass graft; Z98.890 Other specified postprocedural states; Z66 Do not resuscitate
CPT/HCPCS: 71045; 80053; 82550; 82553; 83880; 84484; 85025; 99285; G0378 ×2; 36415